=== PATIENT | female | born 1950 | race Caucasian/White ===

== ENCOUNTER → 2016-12-19 | Outpatient (CLI) | payer MEDICARE, BC ==
[~2016-12-19] VITALS: Ht 160 cm; Wt 106.0 kg
[~2016-12-19] MED LIST: ACET-765 PO; AMLO5TAB4 PO; ASPI-558 PO; ATOR20TA59 PO; BUPR150T89 PO; CA C1TAB82 PO; CHOL378P PO; GABA-305 PO; GABA-338 PO CHEW; LEVO125T4 PO; LEVO150T69 PO; METF-206 PO; OMEG10006 PO; OMEP20CA81 PO; PIOG30TA2 PO; QUIN20TA PO; QUIN40TA PO; REGADENOSON 0.4mg/5ml INJECTION IV ONE; SALINE FLUSH 10ml SYRINGE ONE; SERT-88 PO; TRIA-56 PO
--- NOTE | 2016-12-19 14:03 | ESTF ---
PHARMACOLOGICAL STRESS NUCLEAR SCAN DATE 12/19/2016 INDICATION LBBB. Preop clearance for shoulder surgery. Patient has hypertension and dyslipidemia. PROCEDURE The patient was unable to fully exercise on the treadmill. She was injected with technetium-99m Myoview dose of 13 mCi. Lexiscan dose of 0.4 mg with low-level exercise was performed. Lexiscan dose of 0.4 mg was followed by Tc-99m Myoview dose of 32.1 mCi. Stress and rest perfusion images were obtained per protocol. EKG at rest shows sinus rhythm, LBBB. Blood pressure 177/89. Heart rate of 83 beats per minute. Blood pressure ilsa to 190/72. Heart rate ilsa to 112 beats per minute, which is 72% of age-predicted maximum heart rate. Patient did not complain of any angina. EKG is nondiagnostic. There was no arrhythmia. Stress images were reviewed. There is moderately reduced uptake in the anteroseptal wall which appears predominantly fixed and most likely is related to LBBB as an artifact. In addition, there is moderately reduced uptake in the mid anterior wall as well as the mid inferior wall, and the former extends to the apex, appears predominantly fixed. There is moderate breast tissue attenuation artifact noted on rotatogram. This may explain some of that defect. However, there appears to be some reversibility in the mid anterior wall considered equivocal reversible ischemia. Similarly, the inferior wall exhibits on some cuts mild redistribution suggestive of mild reversible ischemia. The uptake in the lateral wall is normal. The uptake in the inferoseptum is considered within normal limits. Gated images shows no significant regional wall motion abnormality. LV ejection fraction measures 59% on stress images, 63% on rest images. IMPRESSION: 1. Inability to exercise. 2. Electrically nondiagnostic due to LBBB. 3. Clinically low-level exercise with pharmacological stress is negative. 4. Scintigraphically equivocal reversible ischemia in the mid anterior wall and mid inferior wall as described above with normal LV ejection fraction. DISCUSSION AND PLAN Review results with the patient regarding further management. Will discuss the role of heart catheterization. [facility]
== END ==
LOC: IMA 08:44
PROVIDERS: ATTEND Internal Medicine Cardiovascular Disease
DX: Z01.810 Encounter for preprocedural cardiovascular examination (principal); I44.7 Left bundle-branch block, unspecified; I10 Essential (primary) hypertension; R26.2 Difficulty in walking, not elsewhere classified; R94.39 Abnormal result of other cardiovascular function study
CPT/HCPCS: 78452; 93017; A9502; J2785

== ENCOUNTER 2016-12-27 06:28 | Outpatient (CLI) | payer MEDICARE, BC ==
[2016-12-27] VITALS (14 sets, daily range): BP systolic 112–152; BP diastolic 56–71; PULSE 60–94; RESP 10–26; TEMP 98.1–98.3; O2SAT 94–98; Ht 160 cm; Wt 101.7 kg
[~2016-12-27] VITALS: Ht 160 cm; Wt 101.7 kg
[~2016-12-27 06:28] MED LIST changes: -LEVO150T69 PO; -QUIN20TA PO; -REGADENOSON 0.4mg/5ml INJECTION IV ONE; -SALINE FLUSH 10ml SYRINGE ONE
--- NOTE | 2016-12-27 06:30 | NUR ---
ADMIT White female adm amb to Rm. 126 for heart cath. at bedside.
[2016-12-27] MEDS ORDERED: FENTANYL 100mcg/2ml INJECTION ONE (08:12)
[2016-12-27] MEDS ORDERED: NITROGLYCERIN 50mg/10ml INJECTION IV ONE (08:13)
[2016-12-27] MEDS ORDERED: VERAPAMIL 5mg/2ml INJECTION IV ONE (08:13)
[2016-12-27] MEDS ORDERED: MIDAZOLAM 2mg/2ml INJECTION ONE (08:13)
[2016-12-27] MEDS ORDERED: HEPARIN 1,000units in NS 500ml BAG IV ONE (08:14)
[2016-12-27] MEDS ORDERED: LIDOCAINE 1% (10mg/ml) 30ml SDV ONE (08:14)
[2016-12-27] MEDS ORDERED: SALINE FLUSH 10ml SYRINGE ONE (08:14)
[2016-12-27 08:50] LABS: BASOPHILS # (AUTO) 0.1 T/MM3 (0-0.2); BASOPHILS % (AUTO) 0.5 % (0-2); EOSINOPHILS # (AUTO) 0.4 T/MM3 (0-0.5); HCT - HEMATOCRIT 38.5 % (36-46); HGB - HEMOGLOBIN 11.7 GM/DL (12-16); IMMATURE GRANULOCYTE # (AUTO) 0.01 T/MM3 (0.00-0.03); IMMATURE GRANULOCYTE % (AUTO) 0.1 % (0.0-0.5); LYMPHOCYTES # (AUTO) 2.9 T/MM3 (1-4.8); LYMPHOCYTES % (AUTO) 31.7 % (23-45); MEAN CORPUSCULAR HGB 23.2 UUG (26-34); MEAN CORPUSCULAR HGB CONC(MCHC 30.4 GM/DL (31-37); MEAN CORPUSCULAR VOLUME 76.2 UM3 (80-100); MEAN PLATELET VOLUME 12.2 UM3 (9.4-12.4); MONOCYTES # (AUTO) 0.6 T/MM3 (0-0.8); MONOCYTES % (AUTO) 6.8 % (0-9.0); NEUTROPHILS #(AUTO)-ABSOLUTE 5.3 T/MM3 (1.8-7.7); NEUTROPHILS % (AUTO) 56.9 % (33-66); RED BLOOD COUNT 5.05 M/MM3 (4.00-5.20); WBC - WHITE BLOOD COUNT 9.3 T/MM3 (4.5-11.0)
[2016-12-27 08:56] LABS: ALBUMIN 3.8 G/DL (3.5-5.0); ALBUMIN/GLOBULIN RATIO 1.2 RATIO (1.1-2.2); ALKALINE PHOSPHATASE 100 U/L (38-126); ALT (SGPT) 37 U/L (9-52); ANION GAP 14 MEQ/L (5-15); AST (SGOT) 31 U/L (14-36); BUN/CREATININE RATIO 29 RATIO (6-26); CALCIUM 9.6 MG/DL (8.4-10.2); CHLORIDE 104 MEQ/L (98-107); CO2 - CARBON DIOXIDE 28 MEQ/L (22-30); CREATININE 0.7 MG/DL (0.7-1.2); GLOMERULAR FILTRATION RATE 84; GLUCOSE 155 MG/DL (65-110); POTASSIUM 4.1 MEQ/L (3.6-5); SODIUM 146 MEQ/L (134-144); TOTAL PROTEIN 6.9 G/DL (6.3-8.2)
[2016-12-27] MEDS ORDERED: SALINE FLUSH 10ml SYRINGE IVF PRN (09:00)
--- NOTE | 2016-12-27 09:10 | NUR ---
REGIONAL CRA Patient to lab scientist per cart. w/ patient.
--- NOTE | 2016-12-27 09:50 | NUR ---
COLLECTIONS AND ARCHIVES DIRECTOR Patient returned to room post heart cath. Awake and alert and denies discomfort. Wrist site intact.
[2016-12-27] MEDS ORDERED: NORMAL SALINE 1,000 ML IV SCH ×2 (10:00→10:15)
[2016-12-27] MEDS ORDERED: PROMETHAZINE 25 MG INJECTION IV PRN (10:15)
[2016-12-27] MEDS ORDERED: METOCLOPRAMIDE 10mg/2ml INJECTION IV PRN (10:15)
[2016-12-27] MEDS ORDERED: NITROGLYCERIN 0.4 MG SUBLINGUAL TABLET SL PRN (10:15)
[2016-12-27] MEDS ORDERED: LORAZEPAM 0.5 MG TABLET PO PRN (10:15)
[2016-12-27] MEDS ORDERED: ATROPINE 1 MG/ML VIAL IV PRN (10:15)
[2016-12-27] MEDS ORDERED: ACETAMINOPHEN 325 MG TABLET PO PRN (10:15)
[2016-12-27] MEDS ORDERED: MILK OF MAGNESIA 30 ML SUSP PO PRN (10:15)
[2016-12-27] MEDS ORDERED: BISACODYL 10 MG SUPPOSITORY RECTALLY PRN (10:15)
[2016-12-27] MEDS ORDERED: ONDANSETRON 4mg/2ml INJECTION IV PRN (10:15)
[2016-12-27] MEDS ORDERED: LORAZEPAM 2 MG/ML INJECTION IV PRN (10:15)
[2016-12-27] MEDS ORDERED: BISACODYL 5 MG E.C. TABLET PO PRN (10:15)
[2016-12-27] MEDS ORDERED: MAG-AL + SIM LIQUID 30 ML UDC PO PRN (10:15)
--- NOTE | 2016-12-27 12:00 | NUR ---
ACTIVITY Up to BR w/ assist. Steady on feet. Lunch tray here. Denies discomfort.
--- NOTE | 2016-12-27 13:43 | NUR ---
MARIE THIS WORKER MET WITH PT ON THIS DATE. THIS WORKER INTRODUCED SELF AND ROLE OF CASE MANAGEMENT. PT REPORTED THAT SHE HAD A GOOD SUPPORT FROM HER . PT DENIED ANY OTHER NEEDS AT THIS TIME. PT REPORTED ABILITY TO AFFORD MEDICATIONS. PT WAS GIVEN THIS WORKER CONTACT INFORMATION AND ENCOURAGED PT TO CONTACT THIS WORKER WITH ANY NEEDS EVEN AFTER DISCHARGE.
--- NOTE | 2016-12-27 14:38 | NUR ---
DISMISSAL PATIENT EDUCATION PROVIDED, INCLUDING SIGNS TO REPORT, INCISION CARE, ACTIVITY RESTRICTIONS, MEDICATION OVERVIEW, HYGIENE MEASURES, RETURN APPOINTMENT TIME, SUGGESTED DIET. PATIENT VERBALIZED UNDERSTANDING OF EDUCATION AND WAS WILLING AND COOPERATIVE. PATIENTS STATUS IS STABLE: TR BAND REMOVED, 2X2 APPLIED WITH TEGADERM. SITE STABLE WITHOUT ECCHYMOSIS OR SWELLING. PATIENT DENIES ANY DISCOMFORT OR PAIN. PATIENT TAKEN BY WHEELCHAIR TO ER EXIT WHERE WAS WAITING IN HIS CAR.
--- NOTE | 2016-12-27 14:48 | CVPROF ---
DATE: 12/27/2016 INDICATIONS Left bundle branch block. Diabetic patient. Preoperative clearance. Abnormal stress nuclear scan. NARRATIVE OF PROCEDURE The patient was advised on the indications, alternatives, risks and benefits of the procedure and she agreed to proceed. The patient was brought to the cardiac cath laboratory. She received IV sedation of Versed and fentanyl. Please refer to nursing notes for exact amount given. I injected the right wrist with 1% lidocaine for local infiltration. The right radial artery was accessed without difficulty using modified Seldinger percutaneous technique with a micropuncture kit. I introduced a 6-Hungarian Slender sheath. The side arm was aspirated and flushed. I then injected with usual intraarterial drug combo (verapamil 5 mg, nitroglycerin 300 mcg, heparin 3000 units). Using a Derry catheter, the above-mentioned procedures were performed. The procedure was well tolerated. There were no immediate complications. FINDINGS The left main coronary artery was relatively short and normal. The LAD is a large vessel and gives origin to a diagonal branch. Lumen is wide open. Atherosclerosis manifested by calcification in the mid RCA and LAD is present. Left circumflex artery is a large vessel that is still technically nondominant. It is free from occlusive disease. The RCA is a hndcil-bz-iupdz-caliber vessel that is dominant and exhibits no occlusive coronary artery disease. Again, scattered plaquing is present including a band at the junction of the mid and distal segments of the vessel. RPDA is larger than the RPLB branch and both are free from occlusive disease. LV gram shows preserved LV systolic function. EF about 65%. In summary, scattered atherosclerotic plaquing is present as manifested by calcification as well as minimal luminal irregularities such as in the diagonal, LV and RCA, nothing occlusive. IMPRESSION 1. Scattered atherosclerotic plaque with calcification, nothing occlusive, with widely patent coronary lumen of the coronary arteries. 2. Normal left ventricular systolic function. DISCUSSION/PLAN The patient is cleared for anticipated rotator cuff repair next week from a cardiac standpoint. SYEDA
== END 2016-12-27 14:38 | disposition home or self-care (01) ==
LOC: CATH 06:28 → SRG 06:28 → CATH 14:38
PROVIDERS: ATTEND Internal Medicine Cardiovascular Disease
DX: I25.10 Atherosclerotic heart disease of native coronary artery without angina pectoris (principal); I44.7 Left bundle-branch block, unspecified; E11.9 Type 2 diabetes mellitus without complications; R94.39 Abnormal result of other cardiovascular function study; E03.9 Hypothyroidism, unspecified; I10 Essential (primary) hypertension; J30.2 Other seasonal allergic rhinitis; J30.89 Other allergic rhinitis; K21.9 Gastro-esophageal reflux disease without esophagitis; E78.5 Hyperlipidemia, unspecified; F33.1 Major depressive disorder, recurrent, moderate; Z79.82 Long term (current) use of aspirin; Z79.1 Long term (current) use of non-steroidal anti-inflammatories (NSAID); Z79.84 Long term (current) use of oral hypoglycemic drugs; Z79.899 Other long term (current) drug therapy
CPT/HCPCS: 36415; 80053; 82948; 85025; 93005; 93458; C1887; C1893; J1644; J2250; J3010; J3490; Q9967

== ENCOUNTER → 2017-01-11 | Outpatient (CLI) | payer MEDICARE, BC ==
[2017-01-11 09:59] LABS: BASOPHILS # (AUTO) 0.1 T/MM3 (0-0.2); BASOPHILS % (AUTO) 0.6 % (0-2); EOSINOPHILS # (AUTO) 0.5 T/MM3 (0-0.5); EOSINOPHILS % (AUTO) 4.4 % (0-4); HCT - HEMATOCRIT 39.5 % (36-46); IMMATURE GRANULOCYTE # (AUTO) 0.02 T/MM3 (0.00-0.03); IMMATURE GRANULOCYTE % (AUTO) 0.2 % (0.0-0.5); LYMPHOCYTES # (AUTO) 3.3 T/MM3 (1-4.8); LYMPHOCYTES % (AUTO) 28.8 % (23-45); MEAN CORPUSCULAR HGB 23.1 UUG (26-34); MEAN CORPUSCULAR HGB CONC(MCHC 30.4 GM/DL (31-37); MEAN CORPUSCULAR VOLUME 76.1 UM3 (80-100); MONOCYTES # (AUTO) 0.7 T/MM3 (0-0.8); MONOCYTES % (AUTO) 6.2 % (0-9.0); NEUTROPHILS #(AUTO)-ABSOLUTE 6.9 T/MM3 (1.8-7.7); NEUTROPHILS % (AUTO) 59.8 % (33-66); RED BLOOD COUNT 5.19 M/MM3 (4.00-5.20); WBC - WHITE BLOOD COUNT 11.5 T/MM3 (4.5-11.0)
[2017-01-11 10:09] LABS: ANION GAP 13 MEQ/L (5-15); BUN/CREATININE RATIO 23 RATIO (6-26); CALCIUM 9.8 MG/DL (8.4-10.2); CHLORIDE 103 MEQ/L (98-107); CO2 - CARBON DIOXIDE 28 MEQ/L (22-30); CREATININE 0.8 MG/DL (0.7-1.2); GLOMERULAR FILTRATION RATE 72; GLUCOSE 196 MG/DL (65-110); POTASSIUM 4.3 MEQ/L (3.6-5); SODIUM 144 MEQ/L (134-144)
== END ==
LOC: LAB 09:41
PROVIDERS: ATTEND Orthopaedic Surgery
DX: Z01.818 Encounter for other preprocedural examination (principal)
CPT/HCPCS: 36415; 80048; 85025

== ENCOUNTER 2017-01-17 05:32 | Day surgery (SDC) | payer OTHER, MEDICARE, BC ==
--- NOTE | 2017-01-16 11:07 | HPF ---
CHIEF COMPLAINT Left shoulder pain. HISTORY OF PRESENT ILLNESS This is a 66-year-old female who has been seen by Dr. Mendoza for left shoulder pain. She has been diagnosed with a superior labral tear, rotator cuff , tendinopathy, and impingement, as well as biceps tendinopathy. He has discussed surgical options with her, and she wants to proceed. Originally she has been scheduled for early December. Preoperative testing revealed an abnormal EKG. She was referred to Cardiology, and we now have clearance from Dr. Ashby. From a cardiac standpoint, they have done a pharmacologic nuclear scan. This was done 12/26/2016. This showed a nondiagnostic left bundle branch block, low-level exercise, with pharmacologic stress is negative. Scintigraphically equivocal reversible ischemia in the mid anterior wall, mid inferior wall, with normal left ventricular ejection fraction, which was 59% on stress images and 63% on rest images. She has night pain that awakens her from sleep. It is constant. It is aggravated by lifting, overhead motion, pushing, pulling, throwing movement. She has tried rest, ice, heat, home exercises, antiinflammatories, all without improvement. MRI has shown no obvious rotator cuff tear. There is an abnormal T2 signal in the superior labrum with extension to the biceps with mild degenerative change of the AC joint. REVIEW OF SYSTEMS Review of Systems was obtained and reviewed through patient questionnaire completed today. Constitutional: The patient does not have any chills, fever, fatigue, malaise, or weight loss. HEENT: The patient does not have any headache or dizziness. Respiratory: The patient does not have any cough, shortness of air, recent respiratory infection, or wheezing. Cardiovascular: The patient does not have any chest pain, palpitation, leg swelling, or syncope. Gastrointestinal: The patient does not have any abdominal pain, constipation, diarrhea, vomiting, heartburn, or nausea. Skin: The patient does not have any skin infection, rash, or numbness of the extremity. Musculoskeletal: The patient denies other joint pain as well. Neurological: The patient does not have any seizure. Psychiatric: The patient does not have any anxiety or depression. Hematologic/Lymphatic: The patient does not have easy bruising or easy bleeding. PAST MEDICAL HISTORY 1. Hypertension. 2. Hypercholesterolemia. 3. Diabetes. 4. Most recent A1c of 8.1 and 7.9 prior to that. 5. Thyroid disease. 6. GERD. 7. Depression. 8. Arthritis. MEDICATIONS 1. P.O. glitazone. 2. [place]-3. 3. Metformin. 4. Gabapentin. 5. Bupropion. 6. Accupril. 7. Zoloft. 8. Synthroid. 9. Prilosec. 10. Maxzide. 11. Aspirin. 12. Tylenol #3. 13. Meloxicam. 14. Amlodipine. 15. Vitamin D3. ALLERGIES 1. Erythromycin. 2. Penicillin. 3. Lortab which caused hallucinations. 4. Percocet, which caused itching. We have discussed postoperative pain management with her. She was agreeable to use the Percocet, which did help her pain as long as we pretreat for itching with Benadryl. PAST SURGICAL HISTORY 1. Right shoulder arthroscopy with rotator cuff repair. 2. Hysterectomy. 3. Bilateral total knee arthroplasty. 4. Bilateral carpal tunnel release. SOCIAL HISTORY She is a nonsmoker, nondrinker. Denies illicit drug use. FAMILY HISTORY Mother with cancer, hypertension, hypercholesterolemia, and stroke. Father with cancer, hypertension, and hypercholesterolemia. PHYSICAL EXAMINATION VITAL SIGNS: She is 5 feet 3-1/2 inches. Weighs 230 pounds. GENERAL: Well developed, well nourished. Alert and oriented x3, in no acute distress. Normal mood and affect. SKIN: No rash or abnormal lesion. EXTREMITIES: There are 2+ palpable distal pulses. Brisk capillary refill is in all digits. Normal sensation to light touch in the affected extremities. MUSCULOSKELETAL: Normal-appearing gait without antalgia. No assistive device is used. Left upper extremity is focused on. It shows no swelling, deformity, or mass. She has tenderness to palpation over the anterolateral border of the acromion. No other tenderness. She has essentially normal range of motion with pain at the end range of forward flexion. She also has pain throughout the impingement arc of abduction. Strength is 4 over 5 throughout with resisted abduction. Positive impingement signs. Negative Speed's and Yergason' s signs. Kings's is positive for pain deep in the shoulder and a positive thrower's test. No instability. Contralateral extremity shows intact skin. No swelling. No tenderness. Normal range of motion. Normal strength and stability. Well-healed arthroscopic portals. ASSESSMENT Left shoulder injury, superior labral tear, rotator cuff tendinopathy, and impingement. PLAN Dr. Mendoza has discussed the imaging, diagnosis, and potential treatment options with her. She wishes to proceed with arthroscopy. He has recommended a diagnostic arthroscopy with debridement of the superior labrum, biceps tenotomy. He will evaluate her rotator cuff and perform bursectomy and subacromial decompression. Risks and benefits have been reviewed. Risks include infection, nerve damage, artery damage, stroke, PR, pulmonary embolism, deep vein thrombosis, ileus, Staph. Potential risks despite surgery she has continued pain and continued inability to use the arm. She indicated she understood these risks and wants to proceed. Risks are not limited to the above -mentioned alone. SYEDA
[~2017-01-17] VITALS: Ht 161.3 cm; Wt 103.8 kg
[2017-01-17] VITALS (18 sets, daily range): BP systolic 148–206; BP diastolic 60–91; PULSE 67–88; RESP 12–22; TEMP 96.8–98.2; O2SAT 89–99; Ht 161.3 cm; Wt 103.8 kg
--- OUTSIDE RECORDS SUMMARY | 2017-01-17 05:38 | XMS REPORT | Continuity of Care Document ---
Author Author [facility] Address Unknown Phone Unavailable Support Name Relationship Address Phone BJ CENTENO MD Caregiver [address] [place] [address] BJ REY Next Of Kin [address], [place] [id number] Insurance Providers Payer Name Policy Number Subscriber Name Relationship Auto Other [id number] Marina Rey 18 Self / Same As Patient Medicare A And B [id number] Marina Rey 18 Self / Same As Patient [facility] Supp [id number] JuanaMarina gomez 18 Self / Same As Patient Advance Directives Directive Response Recorded Date/Time Advanced Directives No 10/31/16 6:44pm Chief Complaint and Reason for Visit Chief Complaint Injury Reason for Visit Shoulder injury Problems Active Problems Medical Problem Onset Date Status Shoulder injury ~10/31/2016 Acute Medications Current Home Medications Medication Dose Units Route Directions Days/Qty Instructions Start Date Metformin Hcl (Glucophage) 1,000 Mg 1,000 Mg ORAL Twice A Day Quinapril Hcl 40 Mg 20 Mg ORAL Daily 10/31/16 Meloxicam 15 Mg 15 Mg ORAL Daily 10/31/16 Omeprazole 20 Mg 20 Mg ORAL Daily 10/31/16 Bupropion Hcl 150 Mg 150 Mg ORAL Daily 10/31/16 Gabapentin (Neurontin) 600 Mg 600 Mg ORAL Three Times A Day 10/31/16 Pioglitazone Hcl 30 Mg 30 Mg ORAL Daily 10/31/16 Atorvastatin 20 Mg 20 Mg ORAL Daily 10/31/16 Sertraline Hcl 100 Mg 100 Mg ORAL Daily 10/31/16 Aspirin 81 Mg 81 Mg ORAL Daily 10/31/16 Levothyroxine Sodium 125 Mcg 125 Mcg ORAL Daily 10/31/16 Amlodipine Besylate (Norvasc) 5 Mg 5 Mg ORAL Daily@1700 10/31/16 [place] 3 Polyunsat Fatty Acids 1,000 Mg 1,000 Mg ORAL Twice A Day 04/09 Cholecalciferol (Vitamin D3) 1,000 Unit 1,000 Unit ORAL Daily Morphine Sulfate 10 Mg 10 Mg ORAL Every 12 Hours 6 10/31/16 Social History Query Response Start Date Stop Date Smoking Status Former smoker Hospital Discharge Instructions No hospital discharge instructions. Plan of Care Discharge Date 10/31/16 8:11pm Disposition 01 HOME OR SELF-CARE Condition at Discharge Stable Instructions/Education Provided Shoulder Sprain (DC) Forms Provided Return to Work Prescriptions See Medication Section Additional Instructions/Education Wear sling as directed. Apply ice 15 minutes on 1 hour off. Attempt to use ice or something cold at least 3-4 times a day. Take all medication as directed. Follow-up with orthopedist as scheduled on 11/02 Some of your test results may not be complete prior to your leaving the Emergency Department. The Emergency Department is not authorized to give test results over the phone. Please contact the doctor's office listed in this packet of information for your final results. Follow up with your primary care physician or return to the Emergency Department for worsening or worrisome symptoms. * Emergency Department phone number: [phone], x [phone]* MEDICAL RECORD If you need copies of your X-rays, call [phone]. If you need copies of your medical record, including lab results, a signed authorization for release of records will be required. A telephone call for release of Health Information is not allowed. BILLING Billing can sometimes be confusing and frustrating. To help avoid confusion in the future, please take a moment to acquaint yourself with the billing parties for services. SERVICE BILLING LIBERTARIAN Emergency Room Services [facility] Physician Services [facility] X-rays [facility] Patients will receive bills for services from the appropriate provider. If you have any questions about your [facility] bill, our staff will be happy to assist you. Please call [phone], and ask for the billing department. THANK YOU for choosing [facility] as your emergency care provider! Care Plan and Goals ~~Discharge Care Plan~~ Problem: Sprain, strain or fracture of extremity Goal: Extremity will be pink and warm to touch, with good movement of fingers or toes. Instructions: Apply ice bag and elevate extremity above the level of your heart. Monitor extremity for pink color to fingers or toes and movement. Call your physician if extremity becomes blue in color or cool to touch. Some swelling of fingers or toes is expected, continue to wiggle fingers and toes and keep elevated. Allow 24-48 hours for the splint to dry completely. Do not place splint on a hard surface to avoid a pressure area. Take medication(s) as directed. Follow up with Orthopedic or primary care physician as directed. Functional Status No functional status results. Allergies, Adverse Reactions, Alerts Allergen Type Severity Reaction Status Last Updated Penicillin Allergy Unknown Active 10/31/16 Sulfa (Sulfonamide Antibiotics) Allergy Unknown Active 10/31/16 Hydrocodone Allergy Unknown Active 10/31/16 Oxycodone Allergy Unknown Active 10/31/16 Acetaminophen Allergy Unknown Active 10/31/16 Erythromycin base Allergy Unknown Active 10/31/16 Immunizations No immunization records. Vital Signs Acute Vital Signs Vital Response Date/Time Temperature (Fahrenheit) 98.8 10/31/2016 8:11pm Pulse 75 bpm 10/31/2016 8:11pm Respirations 20 10/31/2016 8:11pm Height 5 ft 3 in Weight 230 lb Body Mass Index 40.0 kg/m^2 Results No known relevant diagnostic tests, laboratory data and/or discharge summary. Procedures No known history of procedures. Encounters Encounter Location Arrival/Admit Date Discharge/Depart Date Attending Provider Registered Emergency Room [facility] 10/31/16 6:35pm BJ CENTENO MD Recent Diagnosis
--- OUTSIDE RECORDS SUMMARY | 2017-01-17 05:38 | XMS REPORT | Referral Summary ---
Author Author [facility] Organization [facility] Address Unknown Phone Unavailable Care Team Providers Care Podiatrist Name Role Phone Christian Vaughan Primary Care Physician [phone] Encounter VC Date(s): 07/27/16 - 07/27/16 [facility] [address] [place] [address]- Discharge Diagnosis: Encounter for immunization Discharge Disposition: 01-Home or Self Care Attending Physician: Deborah Vaughan DO Admitting Physician: Deborah Vaughan DO Vital Signs Most recent to 1 oldest [Reference Range]: Temperature Tympanic 36.7 degC [36.6-38.1 degC] (07/27/16 8:12 AM) Peripheral Pulse 88 bpm Rate [60-100 bpm] (07/27/16 8:12 AM) Respiratory Rate 16 br/min [14-20 br/min] (07/27/16 8:12 AM) Blood Pressure 138/70 mmHg [90-140/60-90 mmHg] (07/27/16 8:12 AM) SpO2 97 % (07/27/16 8:12 AM) Problem List Condition Effective Dates Status Health Status Informant Obesity(Confirmed) Active patient Allergies, Adverse Reactions, Alerts Substance Reaction Severity Status erythromycin Active Clifford Active penicillin Active Percocet 10/325 Active sulfa drugs Active Medications amLODIPine 5 mg oral tablet 5 mg 1 tabs, Oral, Daily, # 30 tabs, 0 Refill(s) Start Date: 07/27/16 Status: Ordered Aspirin Low Dose 81 mg, Oral, Daily, 0 Refill(s) Start Date: 07/27/16 Status: Ordered atorvastatin 20 mg oral tablet 20 mg 1 tabs, Oral, Daily, # 30 tabs, 0 Refill(s) Start Date: 07/27/16 Status: Ordered buPROPion 150 mg/12 hours (SR) oral tablet, extended release 150 mg 1 tabs, Oral, Daily, 0 Refill(s) Start Date: 07/27/16 Status: Ordered Fish Oil 1000 mg oral capsule 1,000 mg 1 caps, Oral, BID, # 60 caps, 0 Refill(s) Start Date: 07/27/16 Status: Ordered gabapentin 600 mg oral tablet 600 mg 1 tabs, Oral, TID, # 90 tabs, 0 Refill(s) Start Date: 07/27/16 Status: Ordered levothyroxine 125 mcg (0.125 mg) oral tablet 125 mcg 1 tabs, Oral, Daily, # 30 tabs, 0 Refill(s) Start Date: 07/27/16 Status: Ordered Maxzide 75 mg-50 mg oral tablet 1 tabs, Oral, Daily, # 30 tabs, 0 Refill(s) Start Date: 07/27/16 Status: Ordered meloxicam 15 mg oral tablet 15 mg 1 tabs, Oral, Daily, # 30 tabs, 0 Refill(s) Start Date: 07/27/16 Status: Ordered metFORMIN 1000 mg oral tablet 1,000 mg 1 tabs, Oral, BID, # 60 tabs, 0 Refill(s) Start Date: 07/27/16 Status: Ordered Nasacort AQ 55 mcg/inh nasal spray 2 sprays, Nasal, Daily, # 40 g, 0 Refill(s), Pharmacy: [facility] #[id number] Start Date: 07/27/16 Status: Ordered omeprazole 20 mg oral delayed release tablet 20 mg 1 tabs, Oral, Daily, 0 Refill(s) Start Date: 07/27/16 Status: Ordered pioglitazone 30 mg oral tablet 30 mg 1 tabs, Oral, Daily, # 30 tabs, 0 Refill(s) Start Date: 07/27/16 Status: Ordered quinapril 40 mg oral tablet 1/2 tabs, Oral, Daily, 0 Refill(s) Start Date: 07/27/16 Status: Ordered sertraline 100 mg oral tablet 100 mg 1 tabs, Oral, Daily, # 30 tabs, 0 Refill(s) Start Date: 07/27/16 Status: Ordered Vital-D oral tablet 1 tabs, Oral, Daily, # 100 tabs, 0 Refill(s) Start Date: 07/27/16 Status: Ordered Results No data available for this section Immunizations Vaccine Date Refusal Reason influenza virus vaccine, inactivated1 07/27/16 zoster vaccine live 07/08/15 1Early/Late Reason: Other : just documented late; given while patient was in office Procedures Procedure Date Related Diagnosis Body Site Appendix Carpal tunnel H/O total hysterectomy H/O total knee replacement Social History Social History Type Response Smoking Status Never smoker Assessment and Plan No data available for this section
--- OUTSIDE RECORDS SUMMARY | 2017-01-17 05:38 | XMS REPORT | Continuity of Care Document ---
Author Author [facility] Organization [facility] Address Unknown Phone Unavailable Allergies Active Description Code Type Severity Reaction Onset Reported/Identified Relationship to Patient Clinical Status Yes acetaminophen 1605 1 N/A N/A Yes erythromycin base 2755 1 N/A N/A Yes HYDROCODONE BITARTRATE 1555 1 N/A N/A Yes OXYCODONE HCL 1559 1 N/A N/A Yes penicillin G 4977 1 N/A N/A Yes Sulfa (Sulfonamide Antibiotics) 491 3 N/A N/A Medications Problems Date Dx Coded Attending Type Code Diagnosis Diagnosed By 03/21/2016 W M19.90 Arthritis, midfoot 03/22/2016 W M19.90 Arthritis, midfoot Procedures Code [place] [address] X-RAY EXAM OF FOOT 03/21/2016 45405 OFFICE/OUTPATIENT VISIT EST 03/21/2016 Results Encounters ACCT No. Visit Date/Time Discharge Status Pt. Type Provider Facility Loc./Unit Complaint [id number] 03/21/2016 14:00:00 ACT [facility]
--- OUTSIDE RECORDS SUMMARY | 2017-01-17 05:38 | XMS REPORT | Referral Summary ---
Author Author [facility], Family Medicine Organization [facility] Address Unknown Phone Unavailable Care Team Providers Care Supervisor [place] Name Role Phone Christian Vaughan Primary Care Physician [phone] Encounter VC Date(s): 10/19/16 - 10/19/16 [facility], [address] [place] [id number] Discharge Diagnosis: Moderate recurrent major depression Discharge Diagnosis: Benign essential hypertension Discharge Disposition: 01-Home or Self Care Attending Physician: Deborah Vaughan DO Admitting Physician: Deborah Vaughan DO Vital Signs Most recent to 1 oldest [Reference Range]: Temperature Tympanic 36.5 degC [36.6-38.1 degC] *LOW* (10/19/16 8:13 AM) Peripheral Pulse 73 bpm Rate [60-100 bpm] (10/19/16 8:13 AM) Respiratory Rate 16 br/min [14-20 br/min] (10/19/16 8:13 AM) Blood Pressure 150/66 mmHg [90-140/60-90 mmHg] *HI* (10/19/16 8:13 AM) SpO2 98 % (10/19/16 8:13 AM) Problem List Condition Effective Dates Status Health Status Informant Environmental and Active seasonal allergies(Confirmed) Benign essential Active hypertension(Confirm ed) GERD Active (gastroesophageal reflux disease)(Confirmed) Hyperlipidemia(Confi Active rmed) Adult Active hypothyroidism(Confi rmed) Obesity(Confirmed) Active patient Generalized Active osteoarthritis(Confi rmed) Moderate recurrent Active major depression(Confirmed ) Type 2 diabetes Active mellitus with hemoglobin A1c goal of less than 7.0%(Confirmed) Allergies, Adverse Reactions, Alerts Substance Reaction Severity Status erythromycin Active [place] Active penicillin Active Percocet 10/325 Active sulfa drugs Active Medications amLODIPine 5 mg oral tablet 5 mg 1 tabs, Oral, Daily, # 30 tabs, 0 Refill(s) Start Date: 07/27/16 Status: Ordered Aspirin Low Dose 81 mg, Oral, Daily, 0 Refill(s) Start Date: 07/27/16 Status: Ordered atorvastatin 20 mg oral tablet 20 mg 1 tabs, Oral, Daily, # 90 tabs, 1 Refill(s), Pharmacy: [facility] # [id number], 1 tabs Oral Daily Start Date: 10/11/16 Status: Ordered buPROPion 150 mg/12 hours (SR) oral tablet, extended release 150 mg 1 tabs, Oral, Daily, # 90 tabs, 1 Refill(s), Pharmacy: [facility] # [id number], 1 tabs Oral Daily Start Date: 10/11/16 Status: Ordered cholestyramine 4 g/9 g oral powder for reconstitution See Instructions, MIX ONE SCOOP IN LIQUID & TAKE BY MOUTH DAILY, # 378 unknown unit, eRx: [facility] #[id number], MIX ONE SCOOP IN LIQUID & TAKE BY MOUTH DAILY Start Date: 10/18/16 Status: Ordered Fish Oil 1000 mg oral capsule 1,000 mg 1 caps, Oral, BID, # 60 caps, 0 Refill(s) Start Date: 07/27/16 Status: Ordered gabapentin 600 mg oral tablet 600 mg 1 tabs, Oral, TID, # 270 tabs, 1 Refill(s), Pharmacy: [facility] # [id number], 1 tabs Oral TID Start Date: 10/11/16 Status: Ordered levothyroxine 125 mcg (0.125 mg) oral tablet 125 mcg 1 tabs, Oral, Daily, # 30 tabs, 0 Refill(s) Start Date: 07/27/16 Status: Ordered Maxzide 75 mg-50 mg oral tablet 1 tabs, Oral, Daily, # 30 tabs, 0 Refill(s), Pharmacy: [facility] #[id number] Start Date: 10/18/16 Status: Ordered meloxicam 15 mg oral tablet See Instructions, TAKE ONE TABLET BY MOUTH DAILY, # 30 tabs, eRx: [facility] #[id number] Start Date: 10/06/16 Status: Ordered metFORMIN 1000 mg oral tablet 1,000 mg 1 tabs, Oral, BID, # 60 tabs, 0 Refill(s), Pharmacy: [facility] # [id number], 1 tabs Oral BID Start Date: 10/05/16 Status: Ordered Nasacort AQ 55 mcg/inh nasal spray 2 sprays, Nasal, Daily, # 40 g, 0 Refill(s), Pharmacy: [facility] #[id number] Start Date: 07/27/16 Status: Ordered omeprazole 20 mg oral delayed release tablet 20 mg 1 tabs, Oral, Daily, # 90 tabs, 1 Refill(s), Pharmacy: [facility] # [id number], 1 tabs Oral Daily Start Date: 10/11/16 Status: Ordered pioglitazone 45 mg oral tablet 45 mg 1 tabs, Oral, Daily, # 30 tabs, 0 Refill(s), Pharmacy: [facility] # [id number], 1 tabs Oral Daily Start Date: 10/19/16 Status: Ordered quinapril 40 mg oral tablet 1/2 tabs, Oral, Daily, 0 Refill(s) Start Date: 07/27/16 Status: Ordered sertraline 100 mg oral tablet See Instructions, TAKE ONE TABLET BY MOUTH DAILY, # 30 tabs, eRx: [facility] #[id number] Start Date: 10/16/16 Status: Ordered Vital-D oral tablet 1 tabs, Oral, Daily, # 100 tabs, 0 Refill(s) Start Date: 07/27/16 Status: Ordered Results Chemistry Most recent to 1 oldest [Reference Range]: Sodium Lvl [135-144 141 mEq/L mEq/L] (10/19/16 9:05 AM) Potassium Lvl 4.3 mEq/L [3.5-5.2 mEq/L] (10/19/16 9:05 AM) Chloride [99-111 105 mEq/L mEq/L] (10/19/16 9:05 AM) CO2 [22-31 mEq/L] 26 mEq/L (10/19/16 9:05 AM) AGAP [3-20] 10 (10/19/16 9:05 AM) BUN [10-20 mg/dL] 21 mg/dL *HI* (10/19/16 9:05 AM) Glucose Lvl [70-99 175 mg/dL mg/dL] *HI* (10/19/16 9:05 AM) Creatinine Lvl 0.93 mg/dL [0.57-1.11 mg/dL] (10/19/16 9:05 AM) eGFR [>60 mL/min] >60 mL/min 1 (10/19/16 9:05 AM) Calcium Lvl 9.7 mg/dL [8.9-10.5 mg/dL] (10/19/16 9:05 AM) Albumin Lvl [3.4-4.8 4.3 gm/dL gm/dL] (10/19/16 9:05 AM) Total Protein 7.0 gm/dL [6.0-7.6 gm/dL] (10/19/16 9:05 AM) Globulin [1.8-4.0 2.7 gm/dL gm/dL] (10/19/16 9:05 AM) ALT [0-55 U/L] 23 U/L (10/19/16 9:05 AM) AST [5-34 U/L] 22 U/L (10/19/16 9:05 AM) Alk Phos [40-150 103 U/L U/L] (10/19/16 9:05 AM) Bili Total [0.2-1.2 0.3 mg/dL mg/dL] (10/19/16 9:05 AM) TSH with Reflex Free 0.54 T4 [0.35-4.94] (10/19/16 9:05 AM) Hgb A1c [4.1-5.6 %] 7.9 % *HI* (10/19/16 9:05 AM) eAvg Glucose 180.0 mg/dL (10/19/16 9:05 AM) 1Result Comment: Multiply eGFR results by 1.21 for race. Immunizations Given and Recorded Vaccine Date Status Refusal Reason influenza virus vaccine, inactivated1 07/27/16 Given zoster vaccine live 07/08/15 Recorded 1Early/Late Reason: Other : just documented late; given while patient was in office Procedures Procedure Date Related Diagnosis Body Site Appendix Carpal tunnel H/O total hysterectomy H/O total knee replacement Social History Social History Type Response Smoking Status Never smoker Assessment and Plan Extracted from: Title: Office Visit Note Author: Deborah Vaughan DO Date: 10/19/16 Assessment/Plan Benign essential hypertension Continue current regimen at this time. Ordered: Office Visit Level 4 Est 02495 Diabetes Labs today, further recommendations after results. RTC 3 mo. Ordered: Office Visit Level 4 Est 78692 Hyperlipidemia Labs today with further recommendations after results. Ordered: Office Visit Level 4 Est 58328 Hypothyroid labs today, med adjustment as indicated. Ordered: Office Visit Level 4 Est 51612 Moderate recurrent major depression continue current regimen. Ordered: Office Visit Level 4 Est 00654
--- OUTSIDE RECORDS SUMMARY | 2017-01-17 05:38 | XMS REPORT | Continuity of Care Document ---
Author Author [facility] Organization [facility] Address Unknown Phone Unavailable Support Name Relationship Address Phone AKILAH SIN MD Caregiver [address] [place] [address] Unavailable DONNA GARCIA DO Caregiver Unknown Unavailable BJ REY Next Of Kin [address] [place] [address] Insurance Providers Guarantor Marina Rey Address [address] [place] [address] Email DENIED [address] [facility] Policy Number [id number] Subscriber's Name JuanasloanMarina bernstein Cooper Relationship 18 Self Group Number [id number] Payer Medicare Policy Number [id number] Subscriber's Name CandidoWinMarina L Relationship 18 Self Advance Directives Directive Response Recorded Date/Time Ordered Resuscitation Status Full Code 12/27/16 8:13am Resuscitation Documents on File No 12/27/16 6:48am DPOA for Healthcare Only No 12/27/16 6:48am Living Will No 12/27/16 6:48am Problems No problem information available. Medications Current Home Medications Medication Dose Units Route Directions Days Qty Instructions Start Date Acetaminophen/Dp-Hydram Hcl (Tylenol P.m. Ex-Str Caplet) 1 Tab Tablet 1 Tab Oral Bedtime as needed 06/24/09 Amlodipine Besylate (Norvasc) 5 Mg Tablet 5 Mg Oral Daily Aspirin (Aspir 81) 81 Mg Tablet. 81 Mg Oral Daily 06/11/12 Atorvastatin Calcium 20 Mg Tablet 1 Tab Oral Bedtime 90 11/24/15 Bupropion Hcl (Wellbutrin Sr) 150 Mg Tablet.sa 150 Mg Oral Daily 06/24/09 Ca Cmb 1/Vit D3/B-6/Fa/B12/Av (Vitamin D3-Aloe 1,000 Unit Tab) 1 Each Tablet 1 Unit Oral Qhs 11/25/15 Cholestyramine/Sucrose (Questran) 378 Gm Powder 378 Gm Oral Daily 06/24/09 Gabapentin 300 Mg Capsule 1 Cap Po Chew Daily 11/25/15 Gabapentin 600 Mg Tablet 1 Tab Oral Qhs 11/25/15 Levothyroxine Sodium (Synthroid) 125 Mcg Tablet 1 Tab Oral Before Breakfast BEST IF TAKEN BEFORE BREAKFAST 12/26/16 Metformin Hcl 1,000 Mg Tablet 1,000 Mg Oral Twice A Day 06/11/12 [place]-3 Fatty Acids/Fish Oil (Pv Fish Oil 1,000 Mg Softgel) 1 Each Capsule 1 Cap Oral Twice A Day 60 Capsule 11/25/15 Omeprazole (Prilosec) 20 Mg Capsule.dr 20 Mg Oral Daily 06/24/09 Pioglitazone Hcl (Actos) 30 Mg Tablet 1 Tab Oral 12/26/16 Quinapril Hcl (Accupril) 40 Mg Tablet 0.5 Tab Oral Daily 06/24/09 Sertraline Hcl (Zoloft) 100 Mg Tablet 100 Mg Oral Bedtime Triamterene/Hydrochlorothiazid (Triamterene-Hctz 75-50 Mg Tab) 1 Each Tablet 0.5 Tab Oral Daily 45 11/24/15 Past Home Medications Medication Directions Ordered Status Aspirin 325 Mg Tablet, 325 Mg Oral Daily 06/24/09 Discontinued Meloxicam (Mobic) 15 Mg Tablet, 15 Mg Oral Daily 06/23/09 Discontinued Pravastatin Sodium 20 Mg Tablet, 20 Mg Oral Bedtime 06/24/09 Discontinued Social History Social History Problem Response Recorded Date/Time Onset Date Status Chewing Tobacco Status No 06/12/2012 9:09am Not Applicable Not Applicable Hx Substance Use No 12/26/2016 3:54pm Not Applicable Not Applicable Hx Alcohol Use No 12/26/2016 3:54pm Not Applicable Not Applicable Has the pt used tobacco in the last 12 months No 12/26/2016 3:54pm Not Applicable Not Applicable Query Response Start Date Stop Date Smoking Status Former smoker Hospital Discharge Instructions No hospital discharge instructions. Plan of Care Discharge Date 12/27/16 2:38pm Instructions/Education Provided [facility] Heart Cath Prescriptions See Medication Section Functional Status Query Response Date Recorded Mobility Status Ambulatory December 27, 2016 9:00am Assistive Devices None December 27, 2016 9:00am Activity Limitations None December 27, 2016 9:00am Feeding Ability Independent December 27, 2016 9:00am Toileting Ability Independent December 27, 2016 9:00am Grooming Ability Independent December 27, 2016 9:00am Dressing Ability Independent December 27, 2016 9:00am Driving Ability Independent December 27, 2016 9:00am Housework Ability Independent December 27, 2016 9:00am Meal Preparation Ability Independent December 27, 2016 9:00am Stair Climbing Ability Independent December 27, 2016 9:00am Ability to complete ADL's impeded by No change December 27, 2016 9:00am Cognitive/Perceptual Impairments None December 27, 2016 9:00am Allergies, Adverse Reactions, Alerts Allergen Type Severity Reaction Status Last Updated Penicillin Allergy Intermediate RASH/ITCH Active 12/26/16 Sulfa (Sulfonamide Antibiotics) Adverse Reaction Mild NAUSEA Active Hydrocodone Adverse Reaction Mild DOES NOT GIVE PT PAIN RELIEF Active 01/08 Oxycodone Adverse Reaction Unknown DOES NOT GIVE PT PAIN RELIEF Active 01/08 Erythromycin base Adverse Reaction Mild DIARRHEA Active 12/26/16 Immunizations Query Response on File Recorded Date/Time Hx Influenza Vaccination Y fall 201512/26/16 3:54pm Hx Pneumococcal Vaccination Y 12/26/16 3:54pm Hx Influenza Vaccination Y fall 201512/26/16 3:54pm Vital Signs Acute Vital Signs Vital Response Date/Time Temperature (Fahrenheit) 98.1 deg F (96.8 - 99.1) 12/27/2016 1:05pm Temperature (Calculated Celsius) 36.78632 degrees C (36.0 - 37.3) 12/27/2016 1:05pm Temperature Source Oral 12/27/2016 1:05pm Pulse Rate (adult) 68 bpm (60 - 100) 12/27/2016 1:35pm Respiratory Rate 26 breaths/min (10 - 20) 12/27/2016 1:35pm O2 Sat by Pulse Oximetry 96 % (90 - 100) 12/27/2016 1:35pm Oxygen Delivery Method Room Air 12/27/2016 12:50pm Oxygen Delivery Method Room Air 12/27/2016 6:42am Blood Pressure 134/63 mm Hg 12/27/2016 1:05pm Blood Pressure Source Automatic Cuff 12/27/2016 1:05pm Height (Feet) 5 feet 12/27/2016 6:43am Height (Inches) 3.00 inches 12/27/2016 6:43am Weight (Kilograms) 101.700 kg 12/27/2016 6:43am Body Mass Index (BMI) 39.7 12/27/2016 6:43am Results Laboratory Results Test Name Result Units Flags Reference Collection Date/Time Result Date/ Time Comments White Blood Count 9.3 T/MM3 4.5-11.0 12/27/2016 8:12/27/2016 8: 50am Red Blood Count 5.05 M/MM3 4.00-5.20 12/27/2016 8:12/27/2016 8: 50am Hemoglobin 11.7 GM/DL L 12-16 12/27/2016 8:12/27/2016 8:50am Hematocrit 38.5 % 36-46 12/27/2016 8:12/27/2016 8:50am Mean Corpuscular Volume 76.2 UM3 L 80-100 12/27/2016 8:12/27/2016 8 :50am Mean Corpuscular Hemoglobin 23.2 UUG L 26-34 12/27/2016 8:2016 8:50am Mean Corpuscular Hemoglobin Concent 30.4 GM/DL L 31-37 12/27/2016 8:12/27/2016 8:50am RDW Standard Deviation 43.2 FL 36.9-50.2 12/27/2016 8:12/27/2016 8 :50am Platelet Count 245 T/MM3 130-400 12/27/2016 8:12/27/2016 8:50am Mean Platelet Volume 12.2 UM3 9.4-12.4 12/27/2016 8:12/27/2016 8: 50am Neutrophils (%) (Auto) 56.9 % 33-66 12/27/2016 8:12/27/2016 8: 50am Lymphocytes (%) (Auto) 31.7 % 23-45 12/27/2016 8:12/27/2016 8: 50am Monocytes (%) (Auto) 6.8 % 0-9.0 12/27/2016 8:12/27/2016 8:50am Eosinophils (%) (Auto) 4.0 % 0-4 12/27/2016 8:12/27/2016 8:50am Basophils (%) (Auto) 0.5 % 0-2 12/27/2016 8:12/27/2016 8:50am Immature Granulocyte % (Auto) 0.1 % 0.0-0.5 12/27/2016 8:2016 8:50am Absolute Neutrophils (auto) 5.3 T/MM3 1.8-7.7 12/27/2016 8:2016 8:50am Absolute Lymphocytes (auto) 2.9 T/MM3 1-4.8 12/27/2016 8:2016 8:50am Absolute Monocytes (auto) 0.6 T/MM3 0-0.8 12/27/2016 8:12/27/2016 8:50am Absolute Eosinophils (auto) 0.4 T/MM3 0-0.5 12/27/2016 8:2016 8:50am Absolute Basophils (auto) 0.1 T/MM3 0-0.2 12/27/2016 8:12/27/2016 8:50am Absolute Immature Granulocyte (auto 0.01 T/MM3 0.00-0.03 12/27/2016 8: 12/27/2016 8:50am Icterus Index < 2 0-7 12/27/2016 8:12/27/2016 8:56am Chemistry Specimen Hemolysis < 15 0-25 12/27/2016 8:12/27/2016 8 :56am 0-25: Specimen Exhibited No Hemolysis. Turbidity < 20 0-20 12/27/2016 8:12/27/2016 8:56am Sodium Level 146 MEQ/L H 134-144 12/27/2016 8:12/27/2016 8:56am Potassium Level 4.1 MEQ/L 3.6-5 12/27/2016 8:12/27/2016 8:56am Chloride Level 104 MEQ/L 98-107 12/27/2016 8:12/27/2016 8:56am Carbon Dioxide Level 28 MEQ/L 22-30 12/27/2016 8:12/27/2016 8: 56am Anion Gap 14 MEQ/L 5-15 12/27/2016 8:12/27/2016 8:56am Blood Urea Nitrogen 20.0 MG/DL H 7-17 12/27/2016 8:12/27/2016 8: 56am Creatinine 0.7 MG/DL 0.7-1.2 12/27/2016 8:12/27/2016 8:56am BUN/Creatinine Ratio 29 RATIO H 6-26 12/27/2016 8:12/27/2016 8: 56am Glomerular Filtration Rate Calc 84 12/27/2016 8:12/27/2016 8: 56am Glucose Level 155 MG/DL H 65-110 12/27/2016 8:12/27/2016 8:56am Calculated Osmolality 287 MOSM/KG H 261-280 12/27/2016 8:2016 8:56am Calcium Level 9.6 MG/DL 8.4-10.2 12/27/2016 8:12/27/2016 8:56am Total Bilirubin 0.50 MG/DL 0.20-1.30 12/27/2016 8:12/27/2016 8: 56am Alkaline Phosphatase 100 U/L 38-126 12/27/2016 8:12/27/2016 8: 56am Total Protein 6.9 G/DL 6.3-8.2 12/27/2016 8:12/27/2016 8:56am Albumin 3.8 G/DL 3.5-5.0 12/27/2016 8:12/27/2016 8:56am Globulin 3.1 G/DL 2.4-3.6 12/27/2016 8:12/27/2016 8:56am Albumin/Globulin Ratio 1.2 RATIO 1.1-2.2 12/27/2016 8:12/27/2016 8 :56am Aspartate Amino Transf (AST/SGOT) 31 U/L 14-36 12/27/2016 8:2016 8:56am Alanine Aminotransferase (ALT/SGPT) 37 U/L 9-52 12/27/2016 8:12/27 8:56am Glucometer 165 mg/dL H 65-110 12/27/2016 11:08am 12/27/2016 11:18am Procedures Procedure Status Date Provider(s) Bone imaging 3 phase Completed 10/05/16 [id number]"TECHNETIUM TC-99M MEDRONATE, DIAGNOSTIC, PER STUDY DO Completed Mri joint upr extrem w/o dye Completed 11/03/16 Encounters Encounter Location Arrival/Admit Date Discharge/Depart Date Attending Provider Departed [facility] 12/27/16 6:28am 12/27/16 2:38pm AKILAH SIN MD Registered [facility] 12/19/16 8:44am AKILAH SIN MD Registered [facility] 11/03/16 2:37pm DEVIN THACKER MD Registered [facility] 10/05/16 7:02am STEPHY CARMEN MD
[2017-01-17] MEDS ORDERED: ROCURONIUM 50mg/5ml INJECTION IV ONE (06:20)
[2017-01-17] MEDS ORDERED: PROPOFOL 200mg 20 ML IV ONE (06:20)
[2017-01-17] MEDS ORDERED: LIDOCAINE (2%) 100 MG/5 ML PF SYRINGE IV ONE (06:21)
[2017-01-17] MEDS ORDERED: ROPIVACAINE 0.5% (5mg/ml) 30ml INJ ONE (06:21)
[2017-01-17] MEDS ORDERED: FENTANYL 100mcg/2ml INJECTION ONE ×2 (06:21→07:48)
[2017-01-17] MEDS ORDERED: MIDAZOLAM 2mg/2ml INJECTION IV ONE (06:45)
--- NOTE | 2017-01-17 06:45 | ANESPREOP ---
Anesthesia Record Date and Time DATE: 01/17/17 TIME: 06:42 Proposed Surgical Procedure LEFT SHOULDER ARTHROSCOPY/SAD/BICEPS TENOTOMY/HEATH Allergies: Coded Allergies: Penicillins (Verified Allergy, Mild, ITCHING, 01/17/17) Sulfa (Sulfonamide Antibiotics) (Verified Allergy, Mild, ITCHING, 01/17/17) acetaminophen (Verified Adverse Reaction, Intermediate, ANXIETY,NIGHTMARES , 01/17/17) hydrocodone (Verified Adverse Reaction, Intermediate, ANXIETY,NIGHTMARES, 01/17/17) Ht/Wt/BMI Height: 5 ' 3.50 " Weight: 103.800 kg BMI: 39.9 kg/m2 Vital Signs Date Time Temp Pulse Resp B/P Pulse Ox O2 Delivery O2 Flow Rate FiO2 01/17/17 06:03 98.2 67 16 170/79 93 Room Air Medications Inpatient Medications Current Medications Medications (Trade) Dose Ordered Sig/Marco Antonio Start Time Stop Time Status Last Admin Dose Admin Lactated Ringer's (Lactated Ringers) 1,000 ml @ 50 mls/hr Q20H PRN 01/17/17 07:00 01/17/17 06:32 50 MLS/HR Acetaminophen/Dp-Hydram Hcl (Tylenol P.m. Ex-Str Caplet) 1 Tab Tablet, 1 TAB PO HS PRN, (Reported) Last Taken: on 01/16/171999 Amlodipine Besylate (Norvasc) 5 Mg Tablet, 5 MG PO DAILY, (Reported) Last Taken: on 01/16/171999 Aspirin (Aspir 81) 81 Mg Tablet.dr, 81 MG PO DAILY, (Reported) Last Taken: on 01/04/17 Atorvastatin Calcium (Atorvastatin Calcium) 20 Mg Tablet, 1 TAB PO HS, (Reported) Last Taken: on 01/16/171999 Bupropion Hcl (Wellbutrin Sr) 150 Mg Tablet.sa , 150 MG PO DAILY, (Reported) Last Taken: on 01/16/17 0800 Ca Cmb 1/Vit D3/B-6/FA/B12/Av (Vitamin D3-Aloe 1,000 Unit Tab) 1 Each Tablet, 1 UNIT PO QHS, (Reported) Last Taken: on 01/03/17 Cholestyramine/Sucrose (Questran) 378 Gm Powder, 378 GM PO DAILY, (Reported) Last Taken: on 01/16/17 0700 Gabapentin (Gabapentin) 300 Mg Capsule, 1 CAP PO CHEW DAILY, (Reported) Last Taken: on 01/16/17 08 Gabapentin (Gabapentin) 600 Mg Tablet, 1 TAB PO QHS, (Reported) Last Taken: on 01/16/171999 Levothyroxine Sodium (Synthroid) 125 Mcg Tablet , 1 TAB PO ACB, (Reported) BEST IF TAKEN BEFORE BREAKFAST Last Taken: on 01/16/171999 Metformin Hcl (Metformin Hcl) 1,000 Mg Tablet, 1,000 MG PO BID, (Reported) Last Taken: on 01/16/17 08 [place]-3 Fatty Acids/Fish Oil (Pv Fish Oil 1, 000 mg Softgel) 1 Each Capsule, 1 CAP PO BID, (Reported) Last Taken: on 01/03/17 Omeprazole (Prilosec) 20 Mg Capsule.dr, 20 MG PO DAILY, (Reported) Last Taken: on 01/17/17 0500 Pioglitazone HCl (Actos) 30 Mg Tablet, 1 TAB PO , (Reported) Last Taken: on Unknown Date & Time Quinapril (Accupril) 40 Mg Tablet, 0.5 TAB PO DAILY, (Reported) Last Taken: on 01/17/17 0500 Sertraline Hcl (Zoloft) 100 Mg Tablet, 100 MG PO HS, (Reported) Last Taken: on 01/16/171999 Triamterene/Hydrochlorothiazid (Triamterene- Hctz 75-50 mg Tab) 1 Each Tablet, 0.5 TAB PO DAILY, (Reported) Last Taken: on 01/16/17 0700 Currently on Beta Marco: No Medical/Surgical History Anesthesia PMH: Reports: *Diabetes, *Hypertension (TAKES MEDS), Arthritis (OA) , Cardiac Arrythmia (left BBB), Hiatal Hernia (asymptomatic-on prilosec), Hyperlipidemia, Obesity (morbidly obese), Pneumonia (HX: NONE RECENTLY), Reflux , Thyroid Disease (HASHIMOTOS THYROIDITIS ) Smoking Status: Former smoker # of Packs per Day: 1 # of Years: 20 Use Chewing Tobacco?: No HX of Last Menstrual Period: AGE 38-HYST. Past Surgical History Orthopedic Surgeries: Yes - L TKR, R TKR X2, B CTR, REMOVE BONE SPUR LT FOOT, R SHOULDER SCOPE Abdominal Surgeries: No Genitourinary Surgeries: No Cardiac Surgeries: Yes - HEART CATH. DECEMBER 2016-NEGATIVE Endocrine Surgeries: No - - Reproductive Surgeries: Yes - HYST/BSO Neurological Surgeries: No Ear Surgeries: Yes - R EAR TUBE Nose Surgeries: No Throat Surgeries: No Other Surgeries: Yes - WISDOM TEETH, COLONOSCOPY Anesthesia Adverse Reactions: FOUND none Physical Exam Respiratory: Bilat breath sounds equal, Lungs clear Cardiovascular: FOUND Regular rate, rhythm Airway Assessment Mallampati Score: III TMD: 2 Fingerbreadths Neck Extension: Fair Overall Assessment: May Be Diff Intubation ASA: 3 Plan Anesthesia Plan: GETA Peripheral Nerve Block: Interscalene Block - LT Discussion Discussed risks/options/alternatives of anesthesia and questions answered. Patient consents. Nursing pain assessment noted. Attestation Statement Prior to the delivery of any anesthetic medication, I examined the patient, developed the plan, obtained the patient's consent and discussed the risk and benefits of the procedure with the patient/guardian. RADHA ROBERTS Jan 17, 2017 06:45
[2017-01-17] MEDS ORDERED: LIDOCAINE 1% (10mg/ml) 2ml SDV INJ ONE (07:00)
[2017-01-17] MEDS ORDERED: LR 1,000 ML IV PRN (07:00)
[2017-01-17] MEDS ORDERED: ACETAMINOPHEN 1,000mg Injection IV ONE (07:24)
[2017-01-17] MEDS ORDERED: ONDANSETRON 4mg/2ml INJECTION ONE (07:26)
[2017-01-17] MEDS ORDERED: METOCLOPRAMIDE 10mg/2ml INJECTION ONE (07:26)
[2017-01-17] MEDS ORDERED: DEXAMETHASONE 4mg/ml - 1ml INJECTION ONE (07:26)
[2017-01-17] MEDS ORDERED: KETAMINE 500mg/10ml INJECTION ONE (07:32)
[2017-01-17] MEDS ORDERED: EPHEDRINE SULFATE 50mg/ml INJECTION ONE (07:42)
[2017-01-17] MEDS ORDERED: SALINE FLUSH 10ml SYRINGE ONE (07:42)
[2017-01-17] MEDS ORDERED: CLINDAMYCIN 600mg IVPB 50 ML IV ONE (08:00)
[2017-01-17] MEDS ORDERED: BUPIVACAINE 0.25% (2.5mg/ml) INJ 30ml SDV ONE (08:06)
--- NOTE | 2017-01-17 08:22 | PDPROCED ---
Immediate Operative Note DATE: 01/17/17 TIME: 08:20 Preop Diagnosis: LEFT SHOULDER TYPE 2 SLAP, IMPINGEMENT Postop Diagnosis: Left shoulder type 2 SLAP tear, impingement Surgical Procedures: L Arthroscopic SAD (biceps tenotomy) Surgeon: Kelly Lining Strap Closer: ARUN Lazar Anesthesia: General (plus regional block) Complications: none Estimated Blood Loss see anesthesia JAMAL PHIPPS Jan 17, 2017 08:22
[2017-01-17] MEDS ORDERED: DIPH25CA84 PO (08:25)
[2017-01-17] MEDS ORDERED: ONDA4TAB4 PO (08:25)
[2017-01-17] MEDS ORDERED: OXYC1TAB8 PO (08:25)
[2017-01-17] MEDS ORDERED: OXYCODONE/APAP 5mg/325mg TABLET PO PRN (08:45)
[2017-01-17] MEDS ORDERED: DiphenhydrAMINE 25 MG CAPSULE PO PRN (08:45)
--- NOTE | 2017-01-17 09:29 | ANESPO ---
Post-Op Note Date 01/17/17 Time: 09:29 Status Pt Participated in Evaluation: Pt participated in person Vital Signs Date Time Temp Pulse Resp B/P Pulse Ox O2 Delivery O2 Flow Rate FiO2 01/17/17 08:57 Nasal Cannula 2.00 01/17/17 08:56 97.4 75 16 183/84 89 Respiratory Function: Airway patent, Regular respirations Cardiovascular Function: Regular pulse Mental Status: Alert/oriented Pain Level Intensity: 0 Hydration: Taking po fluids Complications during Recovery None apparent Follow-Up Instructions Instructions Per Surgeon RADHA ROBERTS Jan 17, 2017 09:29
--- NOTE | 2017-01-17 09:29 | ANESPD ---
Peripheral Nerve Blockade Physician: Federico Mendoza MD Date: 01/17/17 Surgical Procedure: left interscalene block Discussion Discussed risks/options/alternatives of anesthesia and questions answered. Patient consents. Nursing pain assessment noted. Block Start: 06:47 Block Stop: 07:01 Block Employed: Intrascalene Indication: post-operative pain Approach: left side confirmed Position: supine Patient: Consent, risks/benefits discussed, Informed, post block act. discussed Monitors: EKG, SpO2, NIBP IV Sedation: Yes Sedation: Awake Midazolam (mg): 2 Initial Vital Signs First Documented Vital Signs Date Time Temp Pulse Resp B/P Pulse Ox O2 Delivery O2 Flow Rate FiO2 01/17/17 06:03 98.2 67 16 170/79 93 Room Air 01/17/17 08:23 6.00 Post Vital Signs Vital Signs Date Time Temp Pulse Resp B/P Pulse Ox O2 Delivery O2 Flow Rate FiO2 01/17/17 08:57 Nasal Cannula 2.00 01/17/17 08:56 97.4 75 16 183/84 89 Initial Pain Score: 0 Post Block Score: 0 Prep: chlorhexadine/ETOH Ultrasound Used?: Yes (see ultrasound image in EMR) Nerve Simulator Twitch at: other (.7) Muscle Response: Yes Parathesia/Pain: none Injectate Ropivacaine (%): .5 Ropivacaine (mL): 30 Was Epi 1:200,000 Used?: No Injection Injection made incrementally with constant monitoring and aspiration every 5 ml. RADHA ROBERTS Jan 17, 2017 09:29
--- NOTE | 2017-01-17 14:27 | OPNOTEF ---
DATE OF OPERATION 01/17/2017 PREOPERATIVE DIAGNOSIS 1. Left shoulder rotator cuff impingement. 2. Left shoulder degenerative type 2 SLAP tear with biceps tendonitis. POSTOPERATIVE DIAGNOSIS 1. Left shoulder rotator cuff impingement. 2. Left shoulder degenerative type 2 SLAP tear with biceps tendonitis. PROCEDURE 1. Left shoulder arthroscopic limited debridement superior labrum and biceps tendon. 2. Left shoulder arthroscopic long head biceps tenotomy. 3. Left shoulder arthroscopic subacromial decompression. SURGEON Federico Mendoza MD FILL TECHNICIAN Kirt Gary PA-C ANESTHESIA General with regional block FLUIDS Please refer to Anesthesia chart. EBL Minimal. TOURNIQUET None used. COMPLICATIONS None. CONDITION Stable to recovery room. DESCRIPTION OF PROCEDURE The patient was identified in the preoperative holding area. The operative extremity was identified and appropriately marked. Risks, benefits, alternatives and potential complications were discussed and informed consent was obtained. The patient was taken to the operating theatre, placed supine on the operating table. Regional block had been placed in preop holding. Appropriate cardiorespiratory monitors were applied and general anesthesia was induced. The patient was positioned in a seated beach chair position with all bony prominences well padded. The head and neck were secured in a safe position. The right upper extremity was sterilely prepped and draped in the usual fashion. Surgical time-out was performed, confirmed with myself, the commercial representative and circulating nurse. Preoperative antibiotics were given. Examination under anesthesia revealed full passive range of motion of the left shoulder. No evidence of instability. A standard posterior arthroscopic portal was established. The arthroscope was inserted and the glenohumeral joint was insufflated with saline. Needle localization was utilized to establish an anterior portal in the rotator interval. Diagnostic examination ensued. Glenohumeral articular cartilage was well maintained. Anterior, inferior and posterior labrum were intact. Inferior axillary recess was free of loose bodies or debris. Superior labrum showed detachment of the long head biceps anchor with splitting up into the base of the biceps as well. Inspection of the biceps showed fraying of its intraarticular portion as well with associated thickening. The labrum was debrided. As had been discussed preoperatively with the patient because of bicipital groove pain as well, we elected to proceed with a tenotomy. An arthroscopic basket forceps was inserted and the long head biceps tendon was released. The biceps stump and remainder of the labrum were debrided as well to a stable labral border. The subscapularis was then visualized, noted to be intact. The articular side of the rotator cuff to include the supraspinatus, infraspinatus and teres minor, were inspected and noted to be intact. The arthroscope was then withdrawn and placed in the subacromial space. Moderate bursitis was present. A lateral portal was established and a thorough bursectomy was performed to include the anterior, lateral and posterior gutters. The CA ligament was markedly frayed. This was released with radiofrequency ablation device. This revealed moderate sized anterolateral subacromial spur. A 5-5 bur was inserted and a standard acromioplasty was performed to flatten the acromion to a type 1 morphology. Resection was carried over to the level of the AC joint. Inspection of the bursal aspect of the rotator cuff showed no evidence of partial-thickness tearing. The shoulder was then copiously lavaged, irrigated and drained. All arthroscopic instruments were removed. Portals were closed with nylon sutures. Marcaine was injected into the subacromial space. Sterile dressings were applied followed by a sling. The patient was awakened from anesthesia and taken to the recovery room in stable and satisfactory condition. SYEDA
== END 2017-01-17 10:00 | disposition home or self-care (01) ==
LOC: NSC 05:32
PROVIDERS: ATTEND Orthopaedic Surgery
DX: S43.432A Superior glenoid labrum lesion of left shoulder, initial encounter (principal); M75.22 Bicipital tendinitis, left shoulder; M75.42 Impingement syndrome of left shoulder; I10 Essential (primary) hypertension; E11.9 Type 2 diabetes mellitus without complications; E03.9 Hypothyroidism, unspecified; E78.00 Pure hypercholesterolemia, unspecified; F32.9 Major depressive disorder, single episode, unspecified; Z79.84 Long term (current) use of oral hypoglycemic drugs; Z79.82 Long term (current) use of aspirin; Z79.899 Other long term (current) drug therapy; Z88.0 Allergy status to penicillin; Z88.1 Allergy status to other antibiotic agents; Z88.2 Allergy status to sulfonamides; Z88.5 Allergy status to narcotic agent; Z96.653 Presence of artificial knee joint, bilateral; Z90.710 Acquired absence of both cervix and uterus; W19.XXXA Unspecified fall, initial encounter
CPT/HCPCS: 82948

== ENCOUNTER 2017-02-18 12:01 | Emergency (ER) | payer MEDICARE, BC ==
[~2017-02-18] VITALS: Ht 157.5 cm; Wt 101.2 kg
[~2017-02-18 12:01] MED LIST changes: -ACET-765 PO; +DIPH25CA84 PO; +ONDA4TAB4 PO; +OXYC1TAB8 PO
[2017-02-18 12:02] VITALS: Ht 157.5 cm; Wt 101.2 kg
--- OUTSIDE RECORDS SUMMARY | 2017-02-18 12:04 | XMS REPORT | Continuity of Care Document ---
Author Author [facility] Organization [facility] Address Unknown Phone Unavailable Support Name Relationship Address Phone DEVIN MENDOZA MD Caregiver [address] [place] [address] Unavailable DONNA GARCIA DO Caregiver [address] [place] [address] Unavailable BJ REY Next Of Kin [address] [place] [address] Insurance Providers Guarantor Marina Rey Address [address] [place] [address] Email DENIED [facility] Policy Number [id number] Subscriber's Name Marina Rey Relationship 18 Self Group Number [id number] Payer Medicare Policy Number [id number] Subscriber's Name Marina Rey Relationship 18 Self Advance Directives Directive Response Recorded Date/Time Ordered Resuscitation Status Full Code 01/16/17 1:33pm Resuscitation Documents on File No 01/17/17 6:18am DPOA for Healthcare Only No 01/17/17 6:18am Living Will No 01/17/17 6:18am Problems No problem information available. Medications Current Home Medications Medication Dose Units Route Directions Days Qty Instructions Start Date Amlodipine Besylate (Norvasc) 5 Mg Tablet 5 [...] Gm Powder 378 Gm Oral Daily 06/24/09 Diphenhydramine Hcl (Benadryl) 25 Mg Capsule 1 Cap Oral Every 6 Hours for Itching 10 Capsule 01/17/17 Gabapentin 300 Mg Capsule 1 Cap Po Chew Daily 11/25/15 Gabapentin 600 Mg Tablet 1 Tab Oral Qhs 11/25/15 Levothyroxine Sodium (Synthroid) 125 Mcg Tablet 1 Tab Oral Before Breakfast BEST IF TAKEN BEFORE BREAKFAST 12/26/16 Metformin Hcl 1,000 Mg Tablet 1,000 Mg Oral Twice A Day 06/11/12 [place]-3 Fatty Acids/Fish Oil (Pv Fish Oil 1,000 Mg Softgel) 1 Each Capsule 1 Cap Oral Twice A Day 60 Capsule 11/25/15 Omeprazole (Prilosec) 20 Mg Capsule.dr 20 Mg Oral Daily 06/24/09 Ondansetron Hcl (Zofran) 4 Mg Tablet 4 Mg Oral Every 6 Hours as needed for Nausea 10 Tablet 01/17/17 Oxycodone Hcl/Acetaminophen (Percocet 5-325 Mg Tablet) 5-325 Tablet 5-10 Mg Oral Every 4 Hours Prn 60 Tablet 01/17/17 Pioglitazone Hcl (Actos) 30 Mg Tablet 1 Tab Oral 12/26/16 Quinapril Hcl (Accupril) 40 Mg Tablet 0.5 Tab Oral Daily 06/24/09 Sertraline Hcl (Zoloft) 100 Mg Tablet 100 Mg Oral Bedtime Triamterene/Hydrochlorothiazid (Triamterene-Hctz 75-50 Mg Tab) 1 Each Tablet 0.5 Tab Oral Daily 45 11/24/15 Past Home Medications Medication Directions Ordered Status Acetaminophen/Dp-Hydram Hcl (Tylenol P.m. Ex-Str Caplet) 1 Tab Tablet, 1 Tab Oral Bedtime as needed 06/24/09 Discontinued Aspirin 325 Mg Tablet, 325 Mg Oral Daily 06/24/09 Discontinued Meloxicam (Mobic) 15 Mg Tablet, 15 Mg Oral Daily 06/23/09 Discontinued Pravastatin Sodium 20 Mg Tablet, 20 Mg Oral Bedtime 06/24/09 Discontinued Social History Social History Problem Response Recorded Date/Time Onset Date Status Reason for Hospitalization LEFT SHOULDER SLAP TEAR,IMPINGEMENT 01/17/2017 8: 51am Not Applicable Not Applicable Chewing Tobacco Status No 06/12/2012 9:09am Not Applicable Not Applicable Hx Substance Use No 01/17/2017 6:18am Not Applicable Not Applicable Hx Alcohol Use No 01/17/2017 6:18am Not Applicable Not Applicable Has the pt used tobacco in the last 12 months No 01/17/2017 6:18am Not Applicable Not Applicable Query Response Start Date Stop Date Smoking Status Former smoker Hospital Discharge Instructions Instructions: Care Instructions: I was in the hospital because (patient own words): SCOPE OF LEFT SHOULDER Discharge Diet: Resume normal diet as tolerated. Discharge Activity: Please refer to Dr. Mendoza's postoperative instructions. Follow Up Appointments: Please refer to Dr. Mendoza's postoperative instructions. Giovanna DIAS ON JANUARY 25, 2014 AT 10:30 AM Pending Lab / Results: No Pending Lab Expected Signs/Symptoms: Please refer to Dr. Mendoza's postoperative instructions. Notify Physician If: Please refer to Dr. Mendoza's postoperative instructions. During Business Hours:: Please call our office at [phone]. After Business Hours:: Please call the hospital at [phone] and have the physician or the covering physician paged. Pain Management/Treatment: Please refer to Dr. Mendoza's postoperative instructions. Wound/Incision Care: Please refer to Dr. Mendoza's postoperative instructions. Condition at time of discharge: Good Plan of Care Discharge Date 01/17/17 10:00am Instructions/Education Provided [facility] [place] Post-Op Prescriptions See Medication Section Functional Status Query Response Date Recorded Ability to complete ADL's impeded by Impaired Mobility January 17, 2017 6:18am Allergies, Adverse Reactions, Alerts Allergen Type Severity Reaction Status Last Updated Penicillin Allergy Mild ITCHING Active 01/17/17 Sulfa (Sulfonamide Antibiotics) Allergy Mild ITCHING Active 01/17/17 Hydrocodone Adverse Reaction Intermediate ANXIETY,NIGHTMARES Active Acetaminophen Adverse Reaction Intermediate ANXIETY,NIGHTMARES Active Immunizations Query Response on File Recorded Date/Time Hx Influenza Vaccination Y fall 201501/17/17 6:18am Hx Pneumococcal Vaccination Y 01/17/17 6:18am Hx Influenza Vaccination Y fall 201501/17/17 6:18am Vital Signs Acute Vital Signs Vital Response Date/Time Temperature (Fahrenheit) 97.4 deg F (96.8 - 99.1) 01/17/2017 8:56am Temperature (Calculated Celsius) 36.43398 degrees C (36.0 - 37.3) 01/17/2017 8:56am Temperature Source Oral 01/17/2017 8:56am Pulse Rate (adult) 69 bpm (60 - 100) 01/17/2017 9:50am Respiratory Rate 17 breaths/min (10 - 20) 01/17/2017 9:50am O2 Sat by Pulse Oximetry 92 % (90 - 100) 01/17/2017 9:50am Oxygen Delivery Method Room Air 01/17/2017 6:47am Oxygen Delivery Method Room Air 01/17/2017 9:50am Oxygen Flow Rate 2.00 L/min 01/17/2017 9:10am Blood Pressure 176/66 mm Hg 01/17/2017 9:50am Blood Pressure Source Automatic Cuff 01/17/2017 9:50am Height (Feet) 5 feet 01/17/2017 6:04am Height (Inches) 3.50 inches 01/17/2017 6:04am Weight (Kilograms) 103.800 kg 01/17/2017 6:04am Body Mass Index (BMI) 39.9 01/17/2017 6:04am Results Laboratory Results Test Name Result Units Flags Reference Collection Date/Time Result Date/ Time Comments Glucometer 169 mg/dL H 65-110 01/17/2017 6:28am 01/17/2017 6:41am Total Bilirubin 0.50 MG/DL 0.20-1.30 12/27/2016 8:12/27/2016 [...] Alanine Aminotransferase (ALT/SGPT) 37 U/L 9-52 12/27/2016 8:23am 12/27 8:56am White Blood Count 11.5 T/MM3 H 4.5-11.0 01/11/2017 9:53am 01/11/2017 9: 59am Red Blood Count 5.19 M/MM3 4.00-5.20 01/11/2017 9:53am 01/11/2017 9: 59am Hemoglobin 12.0 GM/DL 12-16 01/11/2017 9:53am 01/11/2017 9:59am Hematocrit 39.5 % 36-46 01/11/2017 9:53am 01/11/2017 9:59am Mean Corpuscular Volume 76.1 UM3 L 80-100 01/11/2017 9:53am 01/11/2017 9 :59am Mean Corpuscular Hemoglobin 23.1 UUG L 26-34 01/11/2017 9:53am 2016 9:59am Mean Corpuscular Hemoglobin Concent 30.4 GM/DL L 31-37 01/11/2017 9:53am 01/11/2017 9:59am RDW Standard Deviation 43.0 FL 36.9-50.2 01/11/2017 9:53am 01/11/2017 9 :59am Platelet Count 297 T/MM3 130-400 01/11/2017 9:53am 01/11/2017 9:59am Mean Platelet Volume 11.0 UM3 9.4-12.4 01/11/2017 9:53am 01/11/2017 9: 59am Neutrophils (%) (Auto) 59.8 % 33-66 01/11/2017 9:53am 01/11/2017 9: 59am Lymphocytes (%) (Auto) 28.8 % 23-45 01/11/2017 9:53am 01/11/2017 9: 59am Monocytes (%) (Auto) 6.2 % 0-9.0 01/11/2017 9:53am 01/11/2017 9:59am Eosinophils (%) (Auto) 4.4 % H 0-4 01/11/2017 9:53am 01/11/2017 9:59am Basophils (%) (Auto) 0.6 % 0-2 01/11/2017 9:53am 01/11/2017 9:59am Immature Granulocyte % (Auto) 0.2 % 0.0-0.5 01/11/2017 9:53am 2016 9:59am Absolute Neutrophils (auto) 6.9 T/MM3 1.8-7.7 01/11/2017 9:53am 2016 9:59am Absolute Lymphocytes (auto) 3.3 T/MM3 1-4.8 01/11/2017 9:53am 2016 9:59am Absolute Monocytes (auto) 0.7 T/MM3 0-0.8 01/11/2017 9:53am 01/11/2017 9:59am Absolute Eosinophils (auto) 0.5 T/MM3 0-0.5 01/11/2017 9:53am 2016 9:59am Absolute Basophils (auto) 0.1 T/MM3 0-0.2 01/11/2017 9:53am 01/11/2017 9:59am Absolute Immature Granulocyte (auto 0.02 T/MM3 0.00-0.03 01/11/2017 9: 53am 01/11/2017 9:59am Icterus Index < 2 0-7 01/11/2017 9:53am 01/11/2017 10:09am Chemistry Specimen Hemolysis < 15 0-25 01/11/2017 9:5301/11/2017 10:09am 0-25: Specimen Exhibited No Hemolysis. Turbidity < 20 0-20 01/11/2017 9:53am 01/11/2017 10:09am Sodium Level 144 MEQ/L 134-144 01/11/2017 9:53am 01/11/2017 10:09am Potassium Level 4.3 MEQ/L 3.6-5 01/11/2017 9:5301/11/2017 10:09am Chloride Level 103 MEQ/L 98-107 01/11/2017 9:53am 01/11/2017 10:09am Carbon Dioxide Level 28 MEQ/L 22-30 01/11/2017 9:53am 01/11/2017 10: 09am Anion Gap 13 MEQ/L 5-15 01/11/2017 9:53am 01/11/2017 10:09am Blood Urea Nitrogen 18.0 MG/DL H 7-17 01/11/2017 9:53am 01/11/2017 10: 09am Creatinine 0.8 MG/DL 0.7-1.2 01/11/2017 9:53am 01/11/2017 10:09am BUN/Creatinine Ratio 23 RATIO 6-26 01/11/2017 9:53am 01/11/2017 10: 09am Glomerular Filtration Rate Calc 72 01/11/2017 9:53am 01/11/2017 10: 09am Glucose Level 196 MG/DL H 65-110 01/11/2017 9:53am 01/11/2017 10:09am Calculated Osmolality 284 MOSM/KG H 261-280 01/11/2017 9:53am 2016 10:09am Calcium Level 9.8 MG/DL 8.4-10.2 01/11/2017 9:53am 01/11/2017 10:09am Procedures Procedure Status Date Provider(s) Mri joint upr extrem w/o dye Completed 11/03/16 Ht muscle image spect mult Completed 12/19/16 Cardiovascular stress test Completed 12/19/16 [id number]"TECHNETIUM TC-99M TETROFOSMIN, DIAGNOSTIC, PER STUDY Completed LEXISCAN .4MG/5ML - REGADENOSON Completed 12/19/16 Routine venipuncture Completed 12/27/16 Comprehen metabolic panel Completed 12/27/16 Reagent strip/blood glucose Completed 12/27/16 Complete cbc w/auto diff wbc Completed 12/27/16 Electrocardiogram tracing Completed 12/27/16 L hrt artery/ventricle angio Completed 12/27/16 AKILAH SIN MD [id number]"CATHETER, GUIDING (MAY INCLUDE INFUSION/PERFUSION CAP Completed [id number] THAN PEEL-AWAY Completed 12/27/16 [id number]"INJECTION, HEPARIN SODIUM, PER 1000 UNITS" Completed 12/27/16 136621"INJECTION, HEPARIN SODIUM, PER 1000 UNITS" Completed 12/27/16 360717"INJECTION, MIDAZOLAM HYDROCHLORIDE, PER 1 MG" Completed 12/27/16 [id number]"INJECTION, FENTANYL CITRATE, 0.1 MG" Completed 12/27/16 [id number] Completed 12/27/16 [id number]"LOW OSMOLAR CONTRAST MATERIAL, 300-399 MG/ML IODINE C Completed Routine venipuncture Completed 01/11/17 Metabolic panel total ca Completed 01/11/17 Complete cbc w/auto diff wbc Completed 01/11/17 Shoulder arthroscopy Completed 01/17/17 DEVIN MENDOZA MD Encounters Encounter Location Arrival/Admit Date Discharge/Depart Date Attending Provider Departed [facility] 01/17/17 5:32am 01/17/17 10 :00am DEVIN MENDOZA MD Registered [facility] 01/11/17 9:41am DEVIN MENDOZA MD Departed [facility] 12/27/16 6:28am 12/27/16 2:38pm AKILAH SIN MD Registered [facility] 12/19/16 8:44am AKILAH SIN MD Registered [facility] 11/03/16 2:37pm DEVIN MENDOZA MD
--- OUTSIDE RECORDS SUMMARY | 2017-02-18 12:05 | XMS REPORT | Continuity of Care Document ---
Author Author [facility] Organization [facility] Address Unknown Phone Unavailable Allergies [...] Procedures Code [place] [address] X-RAY EXAM OF FOOT 03/21/2016 [id number] OFFICE/OUTPATIENT VISIT EST 03/21/2016 Results Encounters ACCT No. Visit Date/Time Discharge Status Pt. Type Provider Facility Loc./Unit Complaint [id number] 03/21/2016 14:00:00 [facility] [place]
--- NOTE | 2017-02-18 12:14 | ERPDOC ---
Departure Disposition Decision Date: February 18, 2017 Disposition Decision Time: 15:20 Disposition: 01 DISCHARGED HOME, SELF-CARE Impression Impression Impression: Primary Impression: Pancreatitis Chronicity: acute Pancreatitis type: idiopathic Acute pancreatitis complication: no infection or necrosis Qualified Codes: K85.00 - Idiopathic acute pancreatitis without necrosis or infection Severity: Moderate Condition: Stable Seen By: Mid-level only Referrals: DONNA GARCIA DO (Family) Patient Instructions: Pancreatitis (ED) Problems/Meds/Labs Reviewed?: Yes Medications reviewed and manag: Yes Additional Instructions: Your labs today were normal aside from your lipase being elevated at 666. Your US of your gallbladder was normal today, no inflammation or gallstones noted. I do want you to follow up with your primary care provider this week for reevaluation of your gallbladder and your pancreas. Return to Er with any severe pain, vomiting, or fever. Take the Percocet as needed for pain and the Zofran as needed for nausea at home. I do want you to go ahead and drink fluids but follow a soft and bland diet until your pain is improved to help your pancreas rest. Follow up care ordered?: Yes Mental Status: Alert Scripts Ondansetron (Zofran Odt) 4 Mg Tab.rapdis 4 MG PO Q8HR, #10 TAB 0 Refills Orally disintegrating tablet Prov: ARIA BEARD APRN 02/18/17 Oxycodone HCl/Acetaminophen (Percocet 5-325 mg Tablet) 5-325 Tablet 1-2 TAB PO Q4H Y for PAIN, #15 TAB 0 Refills Take 1 tablet, by mouth, every 4 hours as needed for pain. Prov: ARIA BEARD APRN 02/18/17 HPI - Chest Pain General Chief Complaint: Chest Pain Stated Complaint: CP Time Seen by Provider: 12:03 Source: patient Exam Limitations: no limitations HPI - Chest Pain Initial Comments She was eating breakfast at [employer] here in [place] today around 0830. Had onset of nausea and pain in the center of her chest that radiates to her back. She has never had pain like this before. Did not take anything for the pain at home. Has gotten a little worse overall. She did have a heart cath on December [address] Ashby for clearance for a rotator cuff repair coming up. Review of that report shows that she did have widely patent coronary arteries but some scattered plaque. She did have an EKG at that time and the EKG taken today looks the same. Occurred At: other (While eating breakfast at [email or web address]) Onset/Timing: Gradual Duration: 4-6 hrs (started at 0830) Activities at Onset/Context: during/after eating Location: substernal 1 - area of pain, radiates through to her back Quality: aching Associated Symptoms: back pain, nausea/vomiting (nausea, no vomiting), DENIES: abdominal pain, diaphoresis, dizziness, edema, fast HR, fatigue, fever/chills, headache, heartburn, irregular HR, rash, shortness of breath, slow HR, swelling/ lump in chest, syncope, weakness Chest Pain Radiation: back Nitro Today/Relief: no nitro taken today Aspirin Treatment Today: unknown Prior Chest Pain/Cardiac Naresh: cardiac cath (on December 27 2016) Hx of Similar Symptoms: No Allergies: Coded Allergies: Penicillins (Verified Allergy, Mild, ITCHING, 02/18/17) Sulfa (Sulfonamide Antibiotics) (Verified Allergy, Mild, ITCHING, 02/18/17) erythromycin base (Verified Allergy, Unknown, 02/18/17) acetaminophen (Verified Adverse Reaction, Intermediate, ANXIETY,NIGHTMARES , 01/17/17) hydrocodone (Verified Adverse Reaction, Intermediate, ANXIETY,NIGHTMARES, 02/18/17) Past History Past Medical History Metabolic: diabetes, hypercholesterolemia, hypertension GI: GERD Psychological: depression Surgical History Reproductive/: hysterectomy Joint: knee (right and left total knee ) Family History Family History: Negative Vaccines Hx Influenza Vaccination: Yes (FALL 2015) Hx Pneumococcal Vaccination: Yes () Social History Does patient use chewing tobac: No # of Packs/Tins per Day: 1 # of Years: 20 Substance Use Type: does not use Alcohol Intake: none Review of Systems Constitutional Constitutional: DENIES: chills, dizziness, fatigue, fever, weakness Cardiovascular Cardiac: chest pain, DENIES: dyspnea on exertion, orthopnea Rhythm/Rate: DENIES: irregular beat, palpitations Vascular: DENIES: pedal edema, unilateral swelling Pulmonary Respiratory: DENIES: cough, dyspnea, sputum, tachypnea GI Upper Abdomen: nausea, DENIES: pain, vomiting Lower Abdomen: DENIES: constipation, diarrhea, pain Integumentary Skin: DENIES: rash Neurological General: DENIES: headache, numbness, tingling, weakness Physical Exam General General Nourishment: well nourished, well developed, appears stated age, no acute distress, adult, obese General Body Habitus: well groomed Vitals and Pain First Documented Vital Signs Date Time Temp Pulse Resp B/P Pulse Ox O2 Delivery O2 Flow Rate FiO2 02/18/17 12:02 98.4 69 16 134/60 94 Room Air Weight: Kilograms: Height (feet): 5 Height (inches): 3.50 Triage Pain Scale: RN VS reviewed by Provider: Yes Normal Exams: Neck: Full range of motion, without adenopathy, JVD, bruits or thyromegaly Chest/Resp: Clear all santoyo, with good airflow, and symmetry bilaterally CV: Regular rate and rhythm, without murmur or gallop, Pulses 2+ all extremities, capillary refill, <2 seconds all ext., no pedal edema noted Abdomen: Bowel sounds positive, soft, non-tender, non-distended, no hepatosplenomegaly, masses or bruits noted Lymphatic: No lymphadenopathy, or lymphedema noted Integumentary: No rashes, hives, or bruising noted Neurologic: Patient is alert, and oriented Psychiatric: Patient exhibits, appropriate attention, emotion and affect Differential Diagnoses Considering: Acute IN, Anxiety/Panic, Aortic Dissection, Costochondritis, Esophageal Spasm, GERD, Pulmonary Embolus Progress Results/Orders Orders Procedure Category Date Status Time EKG EKG 02/18/17 Taken Cbc W/Auto LAB 02/18/17 Complete Diff-Reflex Manual Bmp - Basic Metabolic LAB 02/18/17 Complete Panel Troponin I W LAB 02/18/17 Complete Hemolysis Index Iv Lock (Ed Only) EDM 02/18/17 Transmitted 12:08 Chest, Pa & Lateral RAD 02/18/17 Taken Aspirin (Asa) PHA 02/19/17 Complete 09:00 G.I. Cocktail PHA 02/18/17 Complete (/Maalox/Lidocaine 12:15 Ondansetron Inj PHA 02/18/17 Complete (Zofran) 12:30 Lorazepam (Ativan) PHA 02/18/17 Complete 12:45 Nitroglycerin PHA 02/18/17 Complete (Nitrostat) 12:45 Hepatic Panel LAB 02/18/17 Complete Lipase LAB 02/18/17 Complete Prochlorperazine PHA 02/18/17 Complete (Compazine) 13:00 Morphine Sulfate PHA 02/18/17 Complete (Morphine) 13:00 D-Dimer LAB 02/18/17 Complete 13:15 Us Gallbladder US 02/18/17 Taken Lab Results Laboratory Tests Test 02/18/17 12:20 White Blood Count 12.5T/MM3 Red Blood Count 4.93M/MM3 Hemoglobin 11.3GM/DL Hematocrit 36.6% Mean Corpuscular Volume 74.2UM3 Mean Corpuscular Hemoglobin 22.9UUG Mean Corpuscular Hemoglobin Concent 30.9GM/DL RDW Standard Deviation 41.7FL Platelet Count 235T/MM3 Mean Platelet Volume 12.1UM3 Immature Granulocyte % (Auto) 0.2% Neutrophils (%) (Auto) 71.8% Lymphocytes (%) (Auto) 17.7% Monocytes (%) (Auto) 6.9% Eosinophils (%) (Auto) 2.8% Basophils (%) (Auto) 0.6% Absolute Immature Granulocyte (auto 0.02T/MM3 Absolute Neutrophils (auto) 9.0T/MM3 Absolute Lymphocytes (auto) 2.2T/MM3 Absolute Monocytes (auto) 0.9T/MM3 Absolute Eosinophils (auto) 0.4T/MM3 Absolute Basophils (auto) 0.1T/MM3 D-Dimer 243NG/ML Turbidity < 20 Sodium Level 143MEQ/L Potassium Level 4.2MEQ/L Chloride Level 106MEQ/L Carbon Dioxide Level 21MEQ/L Anion Gap 16MEQ/L Blood Urea Nitrogen 22.0MG/DL Creatinine 0.7MG/DL Glomerular Filtration Rate Calc 84 BUN/Creatinine Ratio 31RATIO Glucose Level 217MG/DL Calculated Osmolality 285MOSM/KG Calcium Level 9.6MG/DL Total Bilirubin 0.70MG/DL Conjugated Bilirubin 0.00MG/DL Unconjugated Bilirubin 0.00MG/DL Icterus Index < 2 Aspartate Amino Transf (AST/SGOT) 58U/L Alanine Aminotransferase (ALT/SGPT) 52U/L Alkaline Phosphatase 136U/L Troponin I < 0.012ng/ml Total Protein 6.9G/DL Albumin 4.3G/DL Globulin 2.6G/DL Albumin/Globulin Ratio 1.7RATIO Lipase 666U/L Chemistry Specimen Hemolysis < 15 Medications Current ED Medications Aspirin (ASA) 324 mg DAILY PO Last administered on 02/18/17 12:19; Start 02/19 at 09:00; Stop 02/19/17 at 09:00; Status DC Pharmacy Profile Note (/Maalox/ Lidocaine Soln) 30 ml O ONCE PO Last administered on 02/18/17 12:18; Start 02/18/17 at 12:15; Stop 02/18/17 at 12:16 ; Status DC Ondansetron HCl (Zofran) 4 mg O ONCE IV Last administered on 02/18/17 12:18; Start 02/18/17 at 12:30; Stop 02/18/17 at 12:31; Status DC Lorazepam (Ativan) 0.5 mg O ONCE IV Last administered on 02/18/17 12:46; Start 02/18/17 at 12:45; Stop 02/18/17 at 12:46; Status DC Nitroglycerin (Nitrostat) 0.4 mg O ONCE SL Last administered on 02/18/17 12: 46; Start 02/18/17 at 12:45; Stop 02/18/17 at 12:46; Status DC Prochlorperazine Edisylate (Compazine) 10 mg O ONCE IV ; Start 02/18/17 at 13: 00; Stop 02/18/17 at 13:10; Status DC Morphine Sulfate (Morphine) 4 mg O ONCE IV Last administered on 02/18/17 13: 36; Start 02/18/17 at 13:00; Stop 02/18/17 at 13:10; Status DC Progress Progress US today of gallbladder was normal. WBC count is 12.5 with 71.8 neutrophils and no bands. D dimer today is 243 which is barely elevated. Lipase is elevated at 666. CMP is normal. Troponin is negative as well. She is TTP on the RUQ. Will go ahead and get an US of gallbladder to rule out cholecystitis. US negative for gallbladder wall thickening or inflammation or gallstones. She is feeling much more comfortable. Did discuss with Marina regarding possible admission or dismissal and trial as outpatient. Her is a nurse and will be home the next 3 days. She would like to try outpatient. Will send her with Rx for [place] and Zofran. Soft and bland diet over the next several days. Strict return precautions are given. Ultrasound US : Reason for Exam: Pancreatitis, RUQ abdominal pain Ultrasound: Gallbladder US Interpretation: Normal ARIA BEARD APRN February 18, 2017 12:14
[2017-02-18] MEDS ORDERED: G.I. COCKTAIL 30ml PO ONE (12:15)
[2017-02-18] MEDS ORDERED: ONDANSETRON 4mg/2ml INJECTION IV ONE (12:30)
[2017-02-18 12:37] LABS: BASOPHILS # (AUTO) 0.1 T/MM3 (0-0.2); BASOPHILS % (AUTO) 0.6 % (0-2); EOSINOPHILS # (AUTO) 0.4 T/MM3 (0-0.5); EOSINOPHILS % (AUTO) 2.8 % (0-4); HCT - HEMATOCRIT 36.6 % (36-46); HGB - HEMOGLOBIN 11.3 GM/DL (12-16); IMMATURE GRANULOCYTE # (AUTO) 0.02 T/MM3 (0.00-0.03); IMMATURE GRANULOCYTE % (AUTO) 0.2 % (0.0-0.5); LYMPHOCYTES # (AUTO) 2.2 T/MM3 (1-4.8); LYMPHOCYTES % (AUTO) 17.7 % (23-45); MEAN CORPUSCULAR HGB 22.9 UUG (26-34); MEAN CORPUSCULAR HGB CONC(MCHC 30.9 GM/DL (31-37); MEAN CORPUSCULAR VOLUME 74.2 UM3 (80-100); MEAN PLATELET VOLUME 12.1 UM3 (9.4-12.4); MONOCYTES # (AUTO) 0.9 T/MM3 (0-0.8); MONOCYTES % (AUTO) 6.9 % (0-9.0); NEUTROPHILS % (AUTO) 71.8 % (33-66); RED BLOOD COUNT 4.93 M/MM3 (4.00-5.20); WBC - WHITE BLOOD COUNT 12.5 T/MM3 (4.5-11.0)
[2017-02-18 12:40] LABS: ANION GAP 16 MEQ/L (5-15); BUN/CREATININE RATIO 31 RATIO (6-26); CALCIUM 9.6 MG/DL (8.4-10.2); CHLORIDE 106 MEQ/L (98-107); CO2 - CARBON DIOXIDE 21 MEQ/L (22-30); CREATININE 0.7 MG/DL (0.7-1.2); GLOMERULAR FILTRATION RATE 84; GLUCOSE 217 MG/DL (65-110); POTASSIUM 4.2 MEQ/L (3.6-5); SODIUM 143 MEQ/L (134-144)
--- OUTSIDE RECORDS SUMMARY | 2017-02-18 12:40 | XMS REPORT | Continuity of Care Document ---
Author Author [facility] Organization [facility] Address Unknown Phone Unavailable Allergies [...] Procedures Code [place] [address] X-RAY EXAM OF FOOT 03/21/2016 36722 OFFICE/OUTPATIENT VISIT EST 03/21/2016 Results Encounters ACCT No. Visit Date/Time Discharge Status Pt. Type Provider Facility Loc./Unit Complaint [id number] 03/21/2016 14:00:00 ACT Out[facility]
[2017-02-18] MEDS ORDERED: NITROGLYCERIN 0.4 MG SUBLINGUAL TABLET SL ONE (12:45)
[2017-02-18] MEDS ORDERED: LORAZEPAM 2 MG/ML INJECTION IV ONE (12:45)
[2017-02-18] MEDS ORDERED: BUPR150T8 PO (12:56)
[2017-02-18] MEDS ORDERED: DIPH25CA84 PO (12:56)
[2017-02-18] MEDS ORDERED: MORPHINE SULFATE 4 MG SYRINGE IV ONE (13:00)
[2017-02-18] MEDS ORDERED: PROCHLORPERAZINE 10mg/2ml INJECTION IV ONE (13:00)
[2017-02-18] MEDS ORDERED: ONDA4TAB10 PO (13:00)
[2017-02-18] MEDS ORDERED: OXYC-541 PO (13:00)
[2017-02-18] MEDS ORDERED: QUIN40TA PO (13:04)
[2017-02-18] MEDS ORDERED: MELO-267 PO (13:04)
[2017-02-18] MEDS ORDERED: PIOG45TA16 PO (13:04)
[2017-02-18] MEDS ORDERED: FLUT16SP EA NOSTRIL (13:04)
--- NOTE | 2017-02-18 13:05 | NUR ---
UPDATE PATIENT LYING IN BED SLEEPING. PATIENT REPORTS HER PAIN REMAINS 7/10 AND THAT NAUSEA COMES AND GOES. PATIENT IS HAVING O2 SATS DROPPING TO 86% WHILE SLEEPING. SPOKE WITH Christian BEARD APRN, DISCUSSED TO HOLD MORPINE THAT IS ORDERED AT THIS TIME.
[2017-02-18 13:10] LABS: ALBUMIN 4.3 G/DL (3.5-5.0); ALBUMIN/GLOBULIN RATIO 1.7 RATIO (1.1-2.2); ALKALINE PHOSPHATASE 136 U/L (38-126); ALT (SGPT) 52 U/L (9-52); AST (SGOT) 58 U/L (14-36); TOTAL PROTEIN 6.9 G/DL (6.3-8.2)
--- NOTE | 2017-02-18 13:26 | NUR ---
VISITOR DAUGHTER AT BEDSIDE
[2017-02-18 14:01] LABS: LIPASE 666 U/L (23-300)
--- NOTE | 2017-02-18 14:26 | NUR ---
SONO SONO AT BEDSIDE
[2017-02-18] MEDS ORDERED: ONDA4TAB7 PO (15:22)
[2017-02-18] MEDS ORDERED: OXYC1TAB8 PO (15:22)
[2017-02-18 15:31] VITALS: BP 130/62; PULSE 69; RESP 33; TEMP 98.4; O2SAT 96
[2017-02-19] MEDS ORDERED: ASPIRIN 81 MG CHEWABLE TABLET PO SCH (09:00)
--- NOTE | 2017-02-19 10:23 | DI ---
INDICATION: ITS.REASON: chest pain radiating to the back with nausea and vomiting this morning PROCEDURE: CHEST 2-VIEWS UPRIGHT (PA \T\ LAT) Encounter: Initial COMPARISON: None FINDINGS: The lungs are clear without evidence of focal abnormal airspace opacity. There is no pleural effusion or pneumothorax. The heart size, mediastinal contours and pulmonary vascularity are within normal limits. IMPRESSION: No acute cardiopulmonary disease. .
--- NOTE | 2017-02-19 10:29 | DI ---
Indication: ITS.REASON: RUQ abdominal pain, elevated lipase PROCEDURE: US GALLBLADDER: Encounter: Initial Comparison: None Technique: Grayscale and color Doppler sonographic imaging of the right upper quadrant of the abdomen was performed. Findings: Hepatic parenchyma is echogenic and sonographically dense without evidence for focal mass. The gallbladder is normal. There is no wall thickening, pericholecystic fluid or cholelithiasis. Both the intra and extrahepatic biliary system are of normal caliber with the common duct measuring 5 mm in dimension. Visualized portions of the head and body of the pancreas are unremarkable. The right kidney is present without collecting system dilatation. The right kidney measures 11.3 cm in length. Impression: Normal gallbladder. Hepatic steatosis. There is a preliminary report by [facility]. .
== END 2017-02-18 15:31 | disposition home or self-care (01) ==
LOC: ED 12:01
DX: K85.00 Idiopathic acute pancreatitis without necrosis or infection (principal)
CPT/HCPCS: 71020; 76705; 80048; 80076; 83690; 84484; 85025; 85379; 93005; 96374; 96375; 99284; A9270; J2060; J2405; J7999

== ENCOUNTER 2017-02-20 12:10 | Observation (INO) ==
[2017-02-22] MEDS ORDERED: HYDROCODONE/APAP 5mg/325mg TABLET PO PRN (05:00)
[2017-02-22] MEDS ORDERED: NS 1,000 ML IV SCH (05:00)
[2017-02-22] MEDS ORDERED: ONDANSETRON 4 MG/2 ML INJECTION IVP PRN (05:00)
[2017-02-22] MEDS ORDERED: SALINE FLUSH 10ml SYRINGE IV PRN (05:00)
[2017-02-22] MEDS ORDERED: DiphenhydrAMINE 25 MG CAPSULE PO PRN (05:00)
[2017-02-22] MEDS ORDERED: OXYCODONE/APAP 5 MG/325 MG TABLET PO PRN (05:00)
[2017-02-22] MEDS ORDERED: OMEPRAZOLE 20 MG CAPSULE PO SCH (06:30)
[2017-02-22] MEDS ORDERED: LEVOTHYROXINE 125 MCG TABLET PO SCH (06:30)
[2017-02-22] MEDS ORDERED: METFORMIN 1,000 MG TABLET PO SCH (08:00)
[2017-02-22] MEDS ORDERED: QUINAPRIL 20 MG TABLET PO SCH (09:00)
[2017-02-22] MEDS ORDERED: GABAPENTIN 600 MG TABLET PO SCH (09:00)
[2017-02-22] MEDS ORDERED: DOCUSATE SODIUM 100 MG CAPSULE PO SCH (09:00)
[2017-02-22] MEDS ORDERED: ASPIRIN *EC* 81 MG TABLET PO SCH (09:00)
[2017-02-22] MEDS ORDERED: AMLODIPINE 5 MG TABLET PO SCH (09:00)
[2017-02-22] MEDS ORDERED: OMEGA-3 ACID ESTERS 1 GM CAPSULE PO SCH (09:00)
[2017-02-22] MEDS ORDERED: FLUTICASONE NASAL SPRAY 50mcg EA NOSTRIL SCH (09:00)
[2017-02-22] MEDS ORDERED: TRIAMTERENE/HCTZ 37.5 MG-25 MG TABLET PO SCH (09:00)
[2017-02-22] MEDS ORDERED: CHOLESTYRAMINE LIGHT 4 G PACKET PO SCH (11:00)
== END 2017-02-21 18:05 | disposition home or self-care (01) ==
LOC: MED 12:10
PROVIDERS: ADMIT Internal Medicine; ATTEND Internal Medicine

== ENCOUNTER → 2017-02-20 | Outpatient (CLI) | payer MEDICARE, BC ==
[~2017-02-20] MED LIST changes: +BUPR150T8 PO; -BUPR150T89 PO; +FLUT16SP EA NOSTRIL; -GABA-338 PO CHEW; +MELO-267 PO; +ONDA4TAB10 PO; -ONDA4TAB4 PO; +ONDA4TAB7 PO; +OXYC-541 PO; -PIOG30TA2 PO; +PIOG45TA16 PO
[2017-02-20 11:30] LABS: ALBUMIN 4.1 G/DL (3.5-5.0); ALBUMIN/GLOBULIN RATIO 1.4 RATIO (1.1-2.2); ALKALINE PHOSPHATASE 232 U/L (38-126); ALT (SGPT) 162 U/L (9-52); ANION GAP 12 MEQ/L (5-15); AST (SGOT) 127 U/L (14-36); BUN/CREATININE RATIO 19 RATIO (6-26); CALCIUM 9.3 MG/DL (8.4-10.2); CHLORIDE 103 MEQ/L (98-107); CO2 - CARBON DIOXIDE 29 MEQ/L (22-30); CREATININE 0.7 MG/DL (0.7-1.2); GLOMERULAR FILTRATION RATE 84; GLUCOSE 176 MG/DL (65-110); LIPASE 195 U/L (23-300); POTASSIUM 4.1 MEQ/L (3.6-5); SODIUM 144 MEQ/L (134-144); TOTAL PROTEIN 7.1 G/DL (6.3-8.2)
== END ==
LOC: LABN 11:08
PROVIDERS: ATTEND Family Medicine
DX: K85.90 Acute pancreatitis without necrosis or infection, unspecified (principal)
CPT/HCPCS: 80053; 83690